=== PATIENT | male | born 1945 | race Caucasian/White ===

== ENCOUNTER 2024-03-26 09:56 | Outpatient (CLI) | payer MEDICARE, SELFPAY ==
--- OUTSIDE RECORDS SUMMARY | 2024-03-26 09:59 | XMS_ITS | Clinical Summary ---
Author Organization [facility] Address [address] [place] [address] Care Team Providers Care Digital Color Press Operator Name Role Phone Arturo Diaz MD Primary Care Provider Source Comments You are receiving this document as you are listed as the primary care provider,follow-up provider, or the patient has been referred to you for consultation.This is in compliance with the Medicare and[facility] E[facility] Incentive Program,which states Providers who transition their patient to another setting of careor provider of care or refers their patient to another provider of care shouldprovide summary care record for each transition of care or referral. [facility] Allergies No known active allergies Medications Medication Sig Dispensed Refills Start Date End Date Status lancets (SOFTCLIX)Indication s:Type II or unspecified type diabetes mellitus without mention of complication, uncontrolled Use 1 each as instructed. use to test blood sugar 102 each prn 05/02/2012 Active blood glucose test stripIndications:Typ e II or unspecified type diabetes mellitus without mention of complication, uncontrolled Use 1 Strip to test daily. 50 Strip 10/03/2018 Active aspirin 325 MG tablet Take 1 Tablet (325 mg) by mouth daily. Active cetirizine (ZYRTEC) 10 MG tablet Take 1 Tablet (10 mg) by mouth daily. Active Misc Natural Products (OSTEO BI-FLEX JOINT SHIELD OR) Active TURMERIC OR Active Probiotic Product (SUPER PROBIOTIC OR) Acti ve blood glucose monitoring deviceIndications:Co ntrolled type 2 diabetes mellitus without complication, without long-term current use of insulin (HRC) daily. Use as directed. Pharmacy dispense brand based on insurance. 1 Each 06/12/2023 Active blood glucose test stripIndications:Con trolled type 2 diabetes mellitus without complication, without long-term current use of insulin (HRC) Use to test daily. 100 Strip 11 06/12/2023 Active amLODIPine (NORVASC) 10 MG tablet Take 1 Tablet (10 mg) by mouth daily. 90 Tablet 3 08/04/2023 Active glipiZIDE XL (GLUCOTROL XL) 2.5 MG 24 hour release tabletIndications:Co ntrolled type 2 diabetes mellitus without complication, without long-term current use of insulin (HRC) Take 1 Tablet (2.5 mg) by mouth daily. 90 Tablet 3 08/04/2023 08/03/2024 Active sildenafil (REVATIO) 20 MG tablet Take 1-5 Tablets (20-100 mg) by mouth every 24 hours as needed. 90 Tablet 3 12/04/2023 Active triamcinolone acetonide (KENALOG) 0.1 % ointmentIndications: Eczema craquele To eczema rash on body up to twice daily when flared. Ok to try every other day for minimal rash. If no rash, do not need. 80 g 5 12/04/2023 Active metFORMIN (GLUCOPHAGE) 500 MG tabletIndications:Un controlled type 2 diabetes mellitus with hypoglycemia, unspecified hypoglycemia coma status (HRC) TAKE TWO TABLETS BY MOUTH TWICE A DAY WITH MEALS 360 Tablet 3 01/05/2024 Active Active Problems Problem Noted Date Diagnosed Date Hyperlipidemia 01/25/2013 Overview: Other and unspecified hyperlipidemia HTN (hypertension) 09/09/2011 Type 2 diabetes mellitus, controlled Resolved Problems Problem Noted Date Diagnosed Date Resolved Date Type 2 diabetes mellitus, uncontrolled 09/09/2011 08/19/2020 Overview: Type II or unspecified type diabetes mellitus without mention of complication, uncontrolled (HRC) Encounters Date Type Department Care Team Description 01/04/2024 Refill [facility] [address] [place], [place] [id number] Arturo Diaz MD Refill (metFORMIN (GLUCOPHAGE) 500 MG tablet [Pharmacy Med Name: METFORMIN HCL 500MG TABS]) from Last 3 Months Immunizations Name Administration Dates Next Due Flu Vac (3+ yrs) 08/09/2012 Influenza (Fluad) 06/17/2019 Influenza IIV3 (Trivalent) F miguel Rossidose, 65+ Yrs (26648) 07/02/2018,07/12/2017,07/14/2016, 015,06/27/2014 Influenza IIV4 (Quadrivalent ) Fluad, 65+ Yrs 09/26/2023,07/18/2022,07/27/2021, 020 Moderna Bivalent 12+ 10/19/2022 Moderna Monovalent 12+ 04/12/2022,12/23/2020, Moderna Monovalent Booster 12+ 10/04/2021 PCV13 (Prevnar) 07/10/2015 PPSV23 (Pneumovax) 08/06/2014 TDAP (BOOSTRIX) 08/06/2014 Family History Medical History Relation Name Comments Diabetes Father Cataract Mother Diabetes Brother 1 Diabetes Brother 2 Heart Disease Sister Amblyopia/Strabismus Negative Family History Glaucoma Negative Family History Macular Degeneration Negative Family History Retinal Detachment Negative Family History Relation Name Status Comments Father Mother Brother 1 Brother 2 Sister Social History Tobacco Use Types Packs/Day Years Used Date Smoking Tobacco: Former Cigarettes 0.3 3 Smokeless Tobacco: Never Tobacco Cessation:Counseling Given: Not Answered Alcohol Use Standard Drinks/Week Comments Yes 0 (1 standard drink = 0.6 oz pur e alcohol) rarely PHQ-2 Answer Date Recorded PHQ-2 Score 0 12/07/2023 Sex and Gender Information Value Date Recorded Sex Assigned at Not on file Gender Identity Not on file Sexual Orientation Not on file Last Filed Vital Signs Vital Sign Reading Time Taken Comments Blood Pressure 149/77 12/07/2023 11:23 AM GREEN BUILDING ENGINEER Pulse 88 12/07/2023 11:12 AM GREEN BUILDING ENGINEER Temperature 37 ??C (98.6 ??F) 09/07/2020 9:58 AM GREEN BUILDING ENGINEER Respiratory Rate 20 09/07/2020 9:58 AM GREEN BUILDING ENGINEER Oxygen Saturation 97% 09/07/2020 9:58 AM GREEN BUILDING ENGINEER Inhaled Oxygen Concentration - - Weight 84.8 kg (187 lb) 12/07/2023 11:12 AM GREEN BUILDING ENGINEER Height 162.6 cm (5' 4) 12/07/2023 11:12 AM GREEN BUILDING ENGINEER Body Mass Index 32.1 12/07/2023 11:12 AM GREEN BUILDING ENGINEER Plan of Treatment Health Maintenance Due Date Last Done Comments Diabetes: Foot Exam 1946 Zoster/Shingles (1 of 2) 01/16/1996 Diabetes: Eye Exam 11/02/2022 11/02/2021, 07/06/2017 COVID-19 Vaccine ( season) 2023 10/19/2022, 04/12/2022, 10/04/2021, Additional history exists Diabetes: HGBA1C 03/08/2024 12/07/2023, 08/2023, 12/21/2022, Additional history exists Diabetes: Urine Microalbumin 06/09/2024 06/09/2023, 12/22/2021, 09/16/2020, Additional history exists DTaP/Tdap/Td (2 - Tdap) 08/06/2024 08/06/2014 Diabetes: Creatinine 12/06/2024 12/07/2023, 06/12/2023, 12/21/2022, Additional history exists Medicare Annual Wellness Visit 12/06/2024 12/07/2023, 12/21/2022, 12/22/2021, Additional history exists Diabetes: Lipid Panel 12/22/2027 12/21/2022 , 05/10/2021, 12/27/2018, Additional history exists Pneumococcal 65+ Yrs Completed 07/10/2015, 08/06/20 14 Hep C Screening (Preventive Services) Completed 01/30/2018 FIT Colon Cancer Screening Discontinued 09/23/2019, Influenza Completed 09/26/2023, 07/02, 07/27/2021, Additional history exists HepA Aged Out No longer eligi ble based on patient's age to complete this topic HepB Aged Out No longer eligi ble based on patient's age to complete this topic Hib Aged Out No longer eligi ble based on patient's age to complete this topic IPV (Polio) Aged Out No longer eligi ble based on patient's age to complete this topic MCV4 Aged Out No longer eligi ble based on patient's age to complete this topic Procedures Procedure Name Priority Date/Time Associated Diagnosis Comments BASIC METABOLIC PANEL Routine 12/07/2023 11:53 AM GREEN BUILDING ENGINEER Controlled type 2 diabetes mellitus without complication, without long-term current use of insulin (HRC) Secondary hypertension (HRC) HGB A1C Routine 12/07/2023 11:53 AM GREEN BUILDING ENGINEER Controlled type 2 diabetes mellitus without complication, without long-term current use of insulin (HRC) ALBUMIN/CREAT RATIO Routine 06/09/2023 10:25 AM CDT Uncontrolled type 2 diabetes mellitus with hypoglycemia, unspecified hypoglycemia coma status (HRC) LIPID PANEL & DIRECT LDL (IF NEEDED) Routine 12/21/2022 9:28 AM CDT Controlled type 2 diabetes mellitus without complication, without long-term current use of insulin (HRC) FIT COLON RECTAL CANCER SCREENING Routine 09/23/2019 9:40 AM GREEN BUILDING ENGINEER Encounter for Medicare annual wellness exam HEPATITIS C ANTIBODY, WITH REFLEX Routine 01/30/2018 9:11 AM CDT Encounter for Medicare annual wellness exam from Last 3 Months or Most Recently Relevant to Health Maintenance Results * (ABNORMAL) Basic Metabolic Panel (12/07/2023 11:53 AM GREEN BUILDING ENGINEER) Sodium 140 136 - 145 mmol/L 12/07/2023 3:59 PM [facility] Potassium 4.2 3.5 - 5.1 mmol/L 12/07/2023 3:59 PM [facility] Chloride 108 98 - 109 mmol/L 12/07/2023 3:59 PM [facility] CO2 21 20 - 29 mmol/L 12/07/2023 3:59 PM [facility] Anion Gap 11 7 - 16 mmol/L 12/07/2023 3:59 PM [facility] Calcium 9.3 8.4 - 10.4 mg/dL 12/07/2023 3:59 PM [facility] BUN 21 7 - 26 mg/dL 12/07/2023 3:59 PM [facility] Creatinine 1.30(H) 0.73 - 1.18 mg/dL 12/07/2023 3:59 PM [facility] Glucose 156(H) 70 - 100 mg/dL 12/07/2023 3:59 PM [facility] Comment:The given reference range is for the fasting state. Non-fasting reference range for glucose is 70 - 180 mg/dL. GFR, Estimated 57(L) >60 mL/min/1.7 3m2 12/07/2023 3:59 PM [facility] Comment:>60 Hours Fasting 0.1 8 - 12 Hours 12/07/2023 3:59 PM [facility] Comment:Lab unable to obtain patient's fasting status at time of specimen collection. Blood Venipuncture / Unknown 12/07/2023 11:53 AM GREEN BUILDING ENGINEER 12/07/2023 11:53 AM GREEN BUILDING ENGINEER Arturo Diaz MD LAB_1 [facility] [address] [place] [address] * (ABNORMAL) Hgb A1C (12/07/2023 11:53 AM GREEN BUILDING ENGINEER) Hemoglobin A1C (Rapid) 7.9(H) <=5.6 % 12/07/2023 12:46 PM [facility] Estimated Average Glucose (Calc) 180 < 117 mg/dL 12/07/2023 12:46 PM [facility] Comment:Estimated average gl ucose (eAG) converts A1c into glucose units (mg/dL) and estimates average glucose over the past approximately 3 months. The eAG reference interval (<117 mg/dL) corresponds to an A1c of <5.7%. Blood Venipuncture / Unknown 12/07/2023 11:53 AM GREEN BUILDING ENGINEER 12/07/2023 11:53 AM GREEN BUILDING ENGINEER Narrative [facility] - 12/07/2023 12:46 PM GREEN BUILDING ENGINEER For patients not previously diagnosed with diabetes: 5.7-6.4%: Increased risk for diabetes 6.5% and greater: Diagnostic for diabetes For patients diagnosed with diabetes: <8.0%: Goal of therapy for ages 18-75 Clinicians may recommend a higher or lower goal for specific individuals. The test method used for this Hemoglobin A1c result can experience interference from elevated hemoglobin and other hemoglobin variants. In patients with results that do not correlate clinically, contact the lab for further direction. Arturo Diaz MD LAB_1 Performing Organization Address [facility] Co de Phone Number [facility] [id number] [place] [phone] * (ABNORMAL) Albumin/Creatinine Ratio,Random Urine (06/09/2023 10:25 AM CDT) Albumin/Creati nine Ratio, Urine, Random 30(H) <30 mg/g 06/09/2023 3:08 PM [facility] Albumin, Urine, Random 64.4 mg/L 06/09/2023 3:[address] [facility] Creatinine, Urine, Random 216 >20 mg/dL mg/dL 06/09/2023 3:[address] [facility] Urine Non-blood Collection / Unknown 06/09/2023 10:25 AM CDT 06/09/2023 10:25 AM CDT Arturo Diaz MD LAB_1 Performing Organization Address [facility] Co de Phone Number [facility] [address] [place] [address], [facility] [phone] * (ABNORMAL) Lipid Panel and Direct LDL(If Needed) (12/21/2022 9:28 AM CDT) Cholesterol 162 0 - 199 mg/dL 12/21/2022 10:[address] [facility] Triglyceride 131 <=149 mg/dL 12/21/2022 10:[address] [facility] HDL Cholesterol 30(L) >=40 mg/dL 10:[address] [facility] LDL, Calculated 106 <130 mg/dL 10:[address] [facility] Non HDL Chol, Calculated 132 <=159 mg/dL 12/21/2022 10:[address] [facility] Cholesterol/HDL Ratio 5.4 12/21/2022 10:[address] [facility] Hours Fasting 12 12/21/2022 10:[address] [facility] Blood Venipuncture / Unknown 12/21/2022 9:28 AM CDT 12/21/2022 9:28 AM CDT Arturo Diaz MD LAB_1 [facility] [address] [place] [address], [facility] [phone] * FIT Colon Rectal Cancer Screening (09/23/2019 9:40 AM GREEN BUILDING ENGINEER) FIT Specimen 1 Negative Negative 09/24/2019 1:56 PM GREEN BUILDING ENGINEER [facility] Stool 09/23/2019 9:40 AM GREEN BUILDING ENGINEER 09/23/2019 9:40 AM GREEN BUILDING ENGINEER Arturo Diaz MD LAB_1 Performing Organization Address [facility] Co de Phone Number [facility] [address] [address], [facility] [phone] * Hepatitis C Antibody, with Reflex (01/30/2018 9:11 AM CDT) Hepatitis C Antibody Nonreactive Nonreactive PN SOFT 01/30/2018 9:11 AM CDT 01/30/2018 12:21 PM CDT Narrative PN SOFT - 01/30/2018 4:28 PM CDT Performed at [address] [address] CLIA number [id number] Arturo Diaz MD LAB_1 PN SOFT [address] [place] [address] from Last 3 Months or Most Recently Relevant to Health Maintenance Care Teams Digital Color Press Operator Relationship Specialty [place] [address] [address] [place] [address] PCP - General 04/13/12
--- OUTSIDE RECORDS SUMMARY | 2024-03-26 09:59 | XMS_ITS | Encounter Summary ---
Author Organization [facility] Address [address] [place] [address] Care Team Providers Care Dog Barber Name Role Phone Kate Friend MD Primary Care Provider [phone] Reason for Visit * Reason Comments Refill metFORMIN (GLUCOPHAG E) 500 MG tablet [Pharmacy Med Name: METFORMIN HCL 500MG TABS] Encounter Details Date Type Department Care Team (Late st Contact Info) Description 01/04/2024 Refill [facility] [address] [place], [place] [phone] Kate Friend MD [address] [place] [phone] Refill (metFORMIN (GLUCOPHAGE) 500 MG tablet [Pharmacy Med Name: METFORMIN HCL 500MG TABS]) Social History Tobacco Use Types Packs/Day Years Used Date Smoking Tobacco: Former Cigarettes 0.3 3 Smokeless Tobacco: Never Alcohol Use Standard Drinks/Week Comments Yes 0 (1 standard drink = 0.6 oz pur e alcohol) rarely PHQ-2 Answer Date Recorded PHQ-2 Score 0 12/07/2023 Sex and Gender Information Value Date Recorded Sex Assigned at Not on file Gender Identity Not on file Sexual Orientation Not on file documented as of this encounter Nursing Notes * Priyanka Hampton RN - 01/05/2024 12:14 PM CDT Renewed medication per refill standing order. Requested Prescriptions Pending Prescriptions Disp Refills metFORMIN (GLUCOPHAGE) 500 MG tablet [Pharmacy Med Name: METFORMIN HCL 500MG TABS] 360 Tablet 3 Sig: TAKE TWO TABLETS BY MOUTH TWICE A DAY WITH MEALS * Gianni Reed Xrwcomm - 01/04/2024 2:59 PM CDT metFORMIN (GLUCOPHAGE) 500 MG tablet [Pharmacy Med Name: METFORMIN HCL 500MG TABS] Medication started: 01/24/2018 Last ordered by KATE FRIEND: 08/02/2023 (155 days ago) QTY: 360, Refills: 1, Sig: take 2 tablets (1,000 mg) by mouth two times a day with meals. (changed but equivalent) -> Cr is abnormal (1.3 mg/dL lies outside 0.73 mg/dL - 1.18 mg/dL) -> Refill x 12 months, qty: 360, refills: 3 (until due for an office visit, Cr check and HBA1C check) Last qualifying visit: 12/07/2023 (with KATE FRIEND) Next scheduled visit: None Cr: 1.3 mg/dL on 12/07/2023 HBA1C: 7.9 % on 12/07/2023 [facility] Embedded Refills, Reference: [id number], 01/04/2024 2:59:58 PM CDTMoe: MEGAN Refill Centralized Services - Primary Care [[id number]] ([id number]) documented in this encounter Plan of Treatment Not on file documented as of this encounter Visit Diagnoses Diagnosis Uncontrolled type 2 diabetes mellitus with hypoglycemia, unspecified hypoglycemia coma status (HRC) documented in this encounter Care Teams Dog Barber Relationship Specialty [place] [address] [place] [address] PCP - General 04/13/12 documented as of this encounter
== END 2024-03-26 09:57 | disposition home or self-care (01) ==
LOC: NFLDREF 09:57
PROVIDERS: PCP Family Medicine; Visit Provider Family Medicine
DX: Z00.00 Encounter for general adult medical examination without abnormal findings (principal); I10 Essential (primary) hypertension; Z86.79 Personal history of other diseases of the circulatory system
CPT/HCPCS: 80048

== ENCOUNTER 2024-04-18 14:01 | Outpatient (CLI) | payer MEDICARE, SELFPAY ==
--- OUTSIDE RECORDS SUMMARY | 2024-04-18 14:04 | XMS_ITS | Encounter Summary ---
Author Organization [facility] Address [address] [place] [address] Care Team Providers Care Donor Floor Technician Name Role Phone Arturo Diaz MD Primary Care Provider [phone] Reason for Visit * Reason Comments DM/VASC/HTN Registry Call 1 Encounter Details Date Type Department Care Team (Late st Contact Info) Description 04/02/2024 Telephone [facility] [address] [place], [place] [phone] [place] [address] [place] [phone] DM/VASC/HTN Registry Call 1 Social History Tobacco Use Types Packs/Day Years [...] as of this encounter Nursing Notes * Chanel Esparza LPN - 04/02/2024 3:45 PM CDT Contacted patient for blood pressure follow up. Patient needs to schedule follow up BP visit with PCP. Outcome of call: Patient confirmed no longer receiving care in our system [Staff instructions Email [email or web address] to remove patient from outreach registry] documented in this encounter Plan of Treatment Not on file documented as of this encounter Visit Diagnoses Not on filedocumented in this encounter Care Teams Donor Floor Technician Relationship Specialty [place] [address] [place] [address] PCP - General 04/13/12 documented as of this encounter
--- OUTSIDE RECORDS SUMMARY | 2024-04-18 14:04 | XMS_ITS | Clinical Summary ---
Author Organization [facility] Address [address] [place] [address] Care Team Providers Care Overhead Worker Name Role Phone Arturo Diaz MD Primary Care Provider [phone] Source Comments You are receiving this document as you are listed as the primary care provider,follow-up provider, or the patient has been referred to you for consultation.This is in compliance with the Medicare and[facility] E[facility] Incent[facility],which states Providers who transition their patient to another setting of careor provider of care or refers their patient to another provider of care shouldprovide summary care record for each transition of care or referral. [facility] Allergies No known active allergies Medications Medication [...] Encounters Date Type Department Care Team Description 04/02/2024 Telephone [facility] [address] [place] [address] Arturo Diaz MD DM/VASC/HTN Registry Call 1 from Last 3 Months Immunizations Name Administration Dates Next Due Flu Vac (3+ yrs) 08/09/2012 Influenza (Fluad) 06/17/2019 Influenza IIV3 (Trivalent) F luzone Highdose, 65+ Yrs (59124) 07/02/2018,07/12/2017,07/14/2016, 015,06/27/2014 Influenza IIV4 (Quadrivalent ) Mateusz, 65+ Yrs 09/26/2023,07/18/2022,07/27/2021, 020 Moderna Bivalent 12+ [...] Comments Blood Pressure 149/77 12/07/2023 11:23 AM PAINTER ROUGH Pulse 88 12/07/2023 11:12 AM PAINTER ROUGH Temperature 37 ??C (98.6 ??F) 09/07/2020 9:58 AM PAINTER ROUGH Respiratory Rate 20 09/07/2020 9:58 AM PAINTER ROUGH Oxygen Saturation 97% 09/07/2020 9:58 AM PAINTER ROUGH Inhaled Oxygen Concentration - - Weight 84.8 kg (187 lb) 12/07/2023 11:12 AM PAINTER ROUGH Height 162.6 cm (5' 4) 12/07/2023 11:12 AM PAINTER ROUGH Body Mass Index 32.1 12/07/2023 11:12 AM PAINTER ROUGH Plan of Treatment Health Maintenance Due Date Last Done Comments Diabetes: Foot Exam 1945 Zoster/Shingles (1 of 2) 01/16/1996 Diabetes: Eye Exam 11/02/2022 11/02/2021, 07/06/2017 COVID-19 Vaccine ( season) 2023 10/19/2022, 04/12/2022, 10/04/2021, Additional history exists Diabetes: HGBA1C 03/08/2024 12/07/2023, 08/2023, 12/21/2022, Additional history exists Influenza (#1) 2024 09/26/2023, 07/02, 07/27/2021, Additional history exists Diabetes: Urine Microalbumin 06/09/2024 [...] 01/30/2018 FIT Colon Cancer Screening Discontinued 09/23/2019, HepA Aged Out No longer eligi ble [...] BASIC METABOLIC PANEL Routine 12/07/2023 11:53 AM PAINTER ROUGH Controlled type 2 diabetes mellitus without complication, without long-term current use of insulin (HRC) Secondary hypertension (HRC) HGB A1C Routine 12/07/2023 11:53 AM PAINTER ROUGH Controlled type 2 diabetes mellitus without complication, [...] RECTAL CANCER SCREENING Routine 09/23/2019 9:40 AM PAINTER ROUGH Encounter for Medicare annual wellness exam HEPATITIS C ANTIBODY, WITH REFLEX Routine 01/30/2018 9:11 AM CDT Encounter for Medicare annual wellness exam from Last 3 Months or Most Recently Relevant to Health Maintenance Results * (ABNORMAL) Basic Metabolic Panel (12/07/2023 11:53 AM PAINTER ROUGH) Sodium 140 136 - 145 mmol/L 12/07/2023 3:59 PM [facility] Potassium 4.2 3.5 - 5.1 mmol/L 12/07/2023 3:59 PM [facility] Chloride 108 98 - 109 mmol/L 12/07/2023 3:59 PM [facility] CO2 21 20 - 29 mmol/L 12/07/2023 3:59 PM [facility] Anion Gap 11 7 - 16 mmol/L 12/07/2023 3:59 PM [facility] Calcium 9.3 8.4 - 10.4 mg/dL 12/07/2023 3:59 PM [facility] BUN 21 7 - 26 mg/dL 12/07/2023 3:59 PM [facility] Creatinine 1.30(H) 0.73 - 1.18 mg/dL 12/07/2023 3:59 PM [facility] Glucose 156(H) 70 - 100 mg/dL 12/07/2023 3:59 PM [facility] Comment:The given reference range is for the fasting state. Non-fasting reference range for glucose is 70 - 180 mg/dL. GFR, Estimated 57(L) >60 mL/min/1.7 3m2 12/07/2023 3:59 PM [facility] Comment:>60 Hours Fasting 0.1 8 - 12 Hours 12/07/2023 3:59 PM [facility] Comment:Lab unable to obtain patient's fasting status at time of specimen collection. Blood Venipuncture / Unknown 12/07/2023 11:53 AM PAINTER ROUGH 12/07/2023 11:53 AM PAINTER ROUGH Arturo Diaz MD LAB_1 [facility] [address] [place] [address] * (ABNORMAL) Hgb A1C (12/07/2023 11:53 AM PAINTER ROUGH) Hemoglobin A1C (Rapid) 7.9(H) <=5.6 % 12/07/2023 12:46 PM [facility] Estimated Average Glucose (Calc) 180 < 117 mg/dL 12/07/2023 12:46 PM [facility] Comment:Estimated average gl ucose (eAG) converts A1c into glucose units (mg/dL) and estimates average glucose over the past approximately 3 months. The eAG reference interval (<117 mg/dL) corresponds to an A1c of <5.7%. Blood Venipuncture / Unknown 12/07/2023 11:53 AM PAINTER ROUGH 12/07/2023 11:53 AM PAINTER ROUGH Narrative [facility] - 12/07/2023 12:46 PM PAINTER ROUGH For patients not previously diagnosed with diabetes: [...] Arturo Diaz MD LAB_1 Performing Organization Address [facility] Co de Phone Number [facility] [address] [place] [address] * (ABNORMAL) Albumin/Creatinine Ratio,Random Urine (06/09/2023 10:25 AM CDT) Pathologist [facility] Albumin/Creati nine Ratio, Urine, Random 30(H) <30 mg/g 06/09/2023 3:08 PM T [facility] Albumin, Urine, Random 64.4 mg/L 06/09/2023 3:08 PM [facility] Creatinine, Urine, Random 216 >20 mg/dL mg/dL 06/09/2023 3:08 PM [facility] Urine Non-blood Collection / Unknown 06/09/2023 10:25 AM CDT 06/09/2023 10:25 AM CDT Arturo Diaz MD LAB_1 Performing Organization Address [facility] Co de Phone Number [facility] [address] [place] [address] [phone] * (ABNORMAL) Lipid Panel and Direct LDL(If Needed) (12/21/2022 9:28 AM CDT) Pathologist [facility] Cholesterol 162 0 - 199 mg/dL 12/21/2022 10:27 AM [facility] Triglyceride 131 <=149 mg/dL 12/21/2022 10:27 AM [facility] HDL Cholesterol 30(L) >=40 mg/dL 10:27 AM [facility] LDL, Calculated 106 <130 mg/dL 10:27 AM [facility] Non HDL Chol, Calculated 132 <=159 mg/dL 12/21/2022 10:27 AM [facility] Cholesterol/HDL Ratio 5.4 12/21/2022 10:27 AM [facility] Hours Fasting 12 12/21/2022 10:27 AM [facility] Blood Venipuncture / Unknown 12/21/2022 9:28 AM CDT 12/21/2022 9:28 AM CDT Arturo Diaz MD LAB_1 [facility] [address] [place] [address], [facility] [phone] * FIT Colon Rectal Cancer Screening (09/23/2019 9:40 AM PAINTER ROUGH) FIT Specimen 1 Negative Negative 09/24/2019 1:56 PM [facility] Stool 09/23/2019 9:40 AM PAINTER ROUGH 09/23/2019 9:40 AM PAINTER ROUGH Arturo Diaz MD LAB_1 [facility] [address] [address], [facility] [phone] * Hepatitis C Antibody, with Reflex (01/30/2018 9:11 AM CDT) Hepatitis C Antibody Nonreactive Nonreactive PN SOFT 01/30/2018 9:11 AM CDT 01/30/2018 12:21 PM CDT Narrative PN SOFT - 01/30/2018 4:28 PM CDT Performed at [facility], [address] [place] [id number] CLIA number [id number] Arturo Diaz MD LAB_1 PN [facility] [address] [place] [address] from Last 3 Months or Most Recently Relevant to Health Maintenance Care Teams Overhead Worker Relationship Specialty [place] [address] [place] [address] PCP - General 04/13/12
== END 2024-04-18 14:02 | disposition home or self-care (01) ==
LOC: NFLDREF 14:02
PROVIDERS: PCP Family Medicine; Visit Provider Internal Medicine Cardiovascular Disease
DX: I48.0 Paroxysmal atrial fibrillation (principal); Z13.29 Encounter for screening for other suspected endocrine disorder
CPT/HCPCS: 84443

== ENCOUNTER 2024-05-22 08:27 | Outpatient (CLI) | payer MEDICARE, SELFPAY ==
--- OUTSIDE RECORDS SUMMARY | 2024-05-22 08:30 | XMS_ITS | Referral Summary ---
Author Organization [facility] Address [facility] [place] [address] Care Team Providers Care Bedspread Folder Name Role Phone Clinic, [facility] Pr ovider Allergies No known active allergies Medications Medication Sig Dispensed Refills Start Date End Date Status ASPIRIN EC PO Take 81 mg by mouth daily Active lisinopril-hydrochlor othiazide (PRINZIDE,ZESTORETIC) 20-12.5 MG per tablet Take 2 tablets by mouth daily Active METFORMIN HCL PO Take 1,000 mg by mouth 2 times daily (with meals) Active Tadalafil (CIALIS PO) Act abisai clopidogrel (PLAVIX) 75 MG tablet Take 1 tablet (75 mg) by mouth daily 30 tablet 10/30/2020 Active Social History Tobacco Use Types Packs/Day Years Used Date Smoking Tobacco: Never Smokeless Tobacco: Never Adolescent Education Answer Date Record ed Getting School Help Needed Not on file 12/03 Sex and Gender Information Value Date Recorded Sex Assigned at Not on file Gender Identity Not on file Sexual Orientation Not on file Last Filed Vital Signs Vital Sign Reading Time Taken Comments Blood Pressure 183/105 12/04/2023 12:32 PM INSIDE SALES ASSISTANT Pulse 106 12/04/2023 12:32 PM INSIDE SALES ASSISTANT Temperature 36.8 ??C (98.3 ??F) 12/04/2023 12:[address] Respiratory Rate 16 12/04/2023 12:32 PM INSIDE SALES ASSISTANT Oxygen Saturation 95% 12/04/2023 12:32 PM INSIDE SALES ASSISTANT Inhaled Oxygen Concentration - - Weight 84.8 kg (187 lb) 12/04/2023 12:32 PM INSIDE SALES ASSISTANT Height 165.1 cm (5' 5) 12/04/2023 12:32 PM INSIDE SALES ASSISTANT Body Mass Index 31.12 12/04/2023 12:32 PM INSIDE SALES ASSISTANT Plan of Treatment Not on file Procedures Procedure Name Priority Date/Time Associated Diagnosis Comments BASIC METABOLIC PANEL STAT 12/04/2023 12:40 PM INSIDE SALES ASSISTANT from Last 3 Months or Most Recently Relevant to Health Maintenance Results * (ABNORMAL) Basic metabolic panel (BMP) (12/04/2023 12:40 PM INSIDE SALES ASSISTANT) Sodium 137 135 - 145 mmol/L 12/04/2023 1:15 PM [facility]IDE SALES ASSIST[facility] Comment:Reference intervals for this test were updated on 06/27/2023 to more accurately reflect our healthy population. There may be differences in the flagging of prior results with similar values performed with this method. Interpretation of those prior results can be made in the context of the updated reference intervals. Potassium 4.4 3.4 - 5.3 mmol/L 12/04/2023 1:15 PM [facility] Chloride 101 98 - 107 mmol/L 12/04/2023 1:15 PM [facility] Carbon Dioxide (CO2) 20(L) 22 - 29 mmol/L 12/04/2023 1:15 PM INSIDE SALES ASSIST[facility] Anion Gap 16(H) 7 - 15 mmol/L 12/04/2023 1:15 PM [facility]IDE SALES ASSIST[facility] Urea Nitrogen 23.1(H) 8.0 - 23.0 mg/dL 12/04/2023 1:15 PM INSIDE SALES ASSISTANT [facility] Creatinine 1.45(H) 0.67 - 1.17 mg/dL 12/04/2023 1:15 PM INSIDE SALES ASSISTANT [facility] GFR Estimate 50(L) >60 mL/min/1. 73m2 12/04/2023 1:15 PM INSIDE SALES ASSISTANT [facility] Calcium 9.1 8.8 - 10.2 mg/dL 12/04/2023 1:15 PM [facility]IST[facility] Glucose 209(H) 70 - 99 mg/dL 12/04/2023 1:15 PM [facility]IDE SALES ASSIST[facility] Blood STRUCTURE OF RIGHT UPPER LIMB / Unknown Venipuncture / Unknown 12/04/2023 12:40 PM INSIDE SALES ASSISTANT 12/04/2023 12:51 PM INSIDE SALES ASSISTANT Anatoliy Waller MD LAB - BLOOD ORDER [facility] [address] (1st floor, no room number) [place] [address], [facility] [phone] from Last 3 Months or Most Recently Relevant to Health Maintenance Care Teams Bedspread Folder Relationship Specialty Start Date End Date Clinic, [facility] [address] [place] [address] PCP - General 02/28/23
--- OUTSIDE RECORDS SUMMARY | 2024-05-22 08:30 | XMS_ITS | Clinical Summary ---
Author Organization [facility] Address [address] [place] [address]. [place] [address] Care Team Providers Care Convenience Store Manager Name Role Phone Clinic, [facility] Primary [...] Comments Blood Pressure 183/105 12/04/2023 12:32 PM [facility] Pulse 106 12/04/2023 12:32 PM [facility] CO[facility] Temperature 36.8 ??C (98.3 ??F) 12/04/2023 12:[address] Respiratory Rate 16 12/04/2023 12:32 PM [facility] Oxygen Saturation 95% 12/04/2023 12:32 PM [facility] CO[facility] Inhaled Oxygen Concentration - - Weight 84.8 kg (187 lb) 12/04/2023 12:32 PM [facility] CO[facility] Height 165.1 cm (5' 5) 12/04/2023 12:32 PM [facility] [facility] Body Mass Index 31.12 12/04/2023 12:32 PM O[employer]ITE HEALTH COACH Plan of Treatment Health Maintenance Due Date Last Done Comments ADVANCE CARE PLANNING 1945 ANNUAL REVIEW OF HM ORDERS 1945 HEPATITIS C SCREENING 01/16/1964 LIPID 1986 ZOSTER IMMUNIZATION (1 of 2) 01/16/1996 RSV VACCINE ( & 60+) (1 - 1-dose 60+ series) 2006 FALL RISK ASSESSMENT 2011 MEDICARE ANNUAL WELLNESS VISIT 11/04/2021 11/04/2020, 05/08/2020, 05/03/2019, Additional history exists COVID-19 Vaccine ( season) 2023 10/19/2022, 04/12/2022, 10/04/2021, Additional history exists PHQ-2 (once per calendar year) 2023 INFLUENZA VACCINE (#1) 2024 , 07/18/2022, 07/27/2021, Additional history exists DTAP/TDAP/TD IMMUNIZATION (2 - Td or Tdap) 08/06/2024 08/06/2014 GLUCOSE 12/03/2026 12/04/2023, 10/03, 10/30/2020, Additional history exists Pneumococcal Vaccine: 65+ Years Completed 07/10/2015, 08/06/2014 COLORECTAL CANCER SCREENING Discontinued FIT Discontinued 09/23/[address] COLONOGRAPHY Discontinued FLEX SIG Discontinued HPV IMMUNIZATION Aged Out No longer e ligible based on patient's age to complete this topic IPV IMMUNIZATION Aged Out No longer e ligible based on patient's age to complete this topic MENINGITIS IMMUNIZATION Aged Out No l onger eligible based on patient's age to complete this topic RSV MONOCLONAL ANTIBODY Aged Out No l onger eligible based on patient's age to complete this topic sDNA (Cologuard) Discontinued Procedures Procedure Name Priority Date/Time Associated Diagnosis Comments BASIC METABOLIC PANEL STAT 12/04/2023 12:40 PM [facility] HE[employer] CO[facility] from Last 3 Months or Most Recently Relevant to Health Maintenance Results * (ABNORMAL) Basic metabolic panel (BMP) (12/04/2023 12:40 PM [facility] [facility]) Sodium 137 135 - 145 mmol/L 12/04/2023 1:15 PM [facility] Comment:Reference intervals for this test were updated on 06/27/2023 to more accurately reflect our healthy population. There may be differences in the flagging of prior results with similar values performed with this method. Interpretation of those prior results can be made in the context of the updated reference intervals. Potassium 4.4 3.4 - 5.3 mmol/L 12/04/2023 1:15 PM [facility] Chloride 101 98 - 107 mmol/L 12/04/2023 1:15 PM [facility] Carbon Dioxide (CO2) 20(L) 22 - 29 mmol/L 12/04/2023 1:15 PM [facility] Anion Gap 16(H) 7 - 15 mmol/L 12/04/2023 1:15 PM [facility] Urea Nitrogen 23.1(H) 8.0 - 23.0 mg/dL 12/04/2023 1:15 PM [facility] Creatinine 1.45(H) 0.67 - 1.17 mg/dL 12/04/2023 1:15 PM [facility] GFR Estimate 50(L) >60 mL/min/1. 73m2 12/04/2023 1:15 PM [facility] Calcium 9.1 8.8 - 10.2 mg/dL 12/04/2023 1:15 PM [facility] Glucose 209(H) 70 - 99 mg/dL 12/04/2023 1:15 PM [facility] Blood STRUCTURE OF RIGHT UPPER LIMB / Unknown Venipuncture / Unknown 12/04/2023 12:40 PM [facility] 12/04/2023 12:51 PM [facility] Anatoliy Waller MD LAB - BLOOD ORDER [facility] [address] [facility] (1st floor, no room number) [place] [address], [facility] [phone] from Last 3 Months or Most Recently Relevant to Health Maintenance Care Teams Convenience Store Manager Relationship Specialty Start Date End Date Clinic, [facility] [place] [address] [place], [place] [address] PCP - General 02/28/23
--- OUTSIDE RECORDS SUMMARY | 2024-05-22 08:30 | XMS_ITS | Encounter Summary ---
Author Organization [facility] Address [address] [place] [address] Care Team Providers Care Manager Finance Name Role Phone Arturo Diaz MD Primary Care Provider [phone] Reason for Visit * Reason Comments DM/VASC/HTN Registry Call 1 Encounter Details Date Type Department Care Team (Late st Contact Info) Description 04/02/2024 Telephone [facility] [address] [place], [place] [id number] [place] [address] [place] [id number] DM/VASC/HTN Registry Call 1 Social History Tobacco [...] care in our system [Staff instructions Email [email or web address] to remove patient from outreach registry] documented in this encounter Plan of Treatment Not on file documented as of this encounter Visit Diagnoses Not on filedocumented in this encounter Care Teams Manager Finance Relationship Specialty [place] [address] [address] [place] [address] PCP - General 04/13/12 documented as of this encounter
--- OUTSIDE RECORDS SUMMARY | 2024-05-22 08:30 | XMS_ITS | Clinical Summary ---
Author Organization [facility] Address [address] [place] [address] Care Team Providers Care Automatic Furnace Operator Name Role Phone Arturo Diaz MD Primary Care Provider Source Comments You are receiving this document as you are listed as the primary care provider,follow-up provider, or the patient has been referred to you for consultation.This is in compliance with the Medicare and[facility] EHR Incentive Program,which states Providers who transition their patient to another setting of careor provider of care or refers their patient to another provider of care shouldprovide summary care record for each transition of care or referral. [facility] Allergies No known active allergies Medications [...] Problem Noted Date Diagnosed Date Hyperlipidemia 01/25/2013 Overview (05/24/2017): Other and unspecified hyperlipidemia HTN (hypertension) 09/09/2011 Type 2 diabetes mellitus, controlled Resolved Problems Problem Noted Date Diagnosed Date Resolved Date Type 2 diabetes mellitus, uncontrolled 09/09/2011 08/19/2020 Overview (05/24/2017): Type II or unspecified type diabetes mellitus without mention of complication, uncontrolled (HRC) Encounters Date Type Department Care Team Description 04/02/2024 Telephone [facility] [address] [place] [address] Arturo Diaz MD DM/VASC/HTN Registry Call 1 from Last 3 Months Immunizations Name Administration Dates Next Due Flu Vac (3+ yrs) 08/09/2012 Influenza (Fluad) 06/17/2019 Influenza IIV3 (Trivalent) Yecenia Rossidose, 65+ Yrs (26736) 07/02/2018,07/12/2017,07/14/2016, 015,06/27/2014 Influenza IIV4 (Quadrivalent ) Fluad, [...] Comments Blood Pressure 149/77 12/07/2023 11:23 AM FIELD SERVICES ANALYST Pulse 88 12/07/2023 11:12 AM FIELD SERVICES ANALYST Temperature 37 ??C (98.6 ??F) 09/07/2020 9:58 AM FIELD SERVICES ANALYST Respiratory Rate 20 09/07/2020 9:58 AM FIELD SERVICES ANALYST Oxygen Saturation 97% 09/07/2020 9:58 AM FIELD SERVICES ANALYST Inhaled Oxygen Concentration - - Weight 84.8 kg (187 lb) 12/07/2023 11:12 AM FIELD SERVICES ANALYST Height 162.6 cm (5' 4) 12/07/2023 11:12 AM FIELD SERVICES ANALYST Body Mass Index 32.1 12/07/2023 11:12 AM FIELD SERVICES ANALYST Plan of Treatment Health Maintenance Due Date Last Done Comments Diabetes: Foot Exam 1945 MTM Covered 1945 Zoster/Shingles (1 of 2) 01/16/1996 Diabetes: [...] BASIC METABOLIC PANEL Routine 12/07/2023 11:53 AM FIELD SERVICES ANALYST Controlled type 2 diabetes mellitus without complication, without long-term current use of insulin (HRC) Secondary hypertension (HRC) HGB A1C Routine 12/07/2023 11:53 AM FIELD SERVICES ANALYST Controlled type 2 diabetes mellitus without complication, without long-term current use of insulin (HRC) ALBUMIN/CREAT RATIO Routine 06/09/2023 10:25 AM CDT Uncontrolled type 2 diabetes mellitus with hypoglycemia, unspecified hypoglycemia coma status (HRC) LIPID PANEL & DIRECT LDL (IF NEEDED) Routine 12/21/2022 9:28 AM CDT Controlled type 2 diabetes mellitus without complication, without long-term current use of insulin (HRC) FIT,OCCULT BLOOD, STOOL Routine 09/23/2019 9:40 AM FIELD SERVICES ANALYST Encounter for Medicare annual wellness exam HEPATITIS C ANTIBODY, WITH REFLEX Routine 01/30/2018 9:11 AM CDT Encounter for Medicare annual wellness exam from Last 3 Months or Most Recently Relevant to Health Maintenance Results * (ABNORMAL) Basic Metabolic Panel (12/07/2023 11:53 AM FIELD SERVICES ANALYST) Sodium 140 136 - 145 mmol/L 12/07/2023 3:59 PM [facility] Potassium 4.2 3.5 - 5.1 mmol/L 12/07/2023 3:59 PM [facility] Chloride 108 98 - 109 mmol/L 12/07/2023 3:59 PM [facility] CO2 21 20 - 29 mmol/L 12/07/2023 3:59 PM [facility] Anion Gap 11 7 - 16 mmol/L 12/07/2023 3:59 PM [facility] Calcium 9.3 8.4 - 10.4 mg/dL 12/07/2023 3:59 PM [facility] BUN 21 7 - 26 mg/dL 12/07/2023 3:59 PM [facility] Creatinine 1.30(H) 0.73 - 1.18 mg/dL 12/07/2023 3:59 PM [facility] Glucose 156(H) 70 - 100 mg/dL 12/07/2023 3:59 PM [facility] Comment:The given reference range is for the fasting state. Non-fasting reference range for glucose is 70 - 180 mg/dL. GFR, Estimated 57(L) >60 mL/min/1.7 3m2 12/07/2023 3:59 PM [facility] Comment:>60 Hours Fasting 0.1 8 - 12 Hours 12/07/2023 3:59 PM [facility] Comment:Lab unable to obtain patient's fasting status at time of specimen collection. Blood Venipuncture / Unknown 12/07/2023 11:53 AM FIELD SERVICES ANALYST 12/07/2023 11:53 AM FIELD SERVICES ANALYST Arturo Diaz MD LAB_1 [facility] [address] [place] [address] * (ABNORMAL) Hgb A1C (12/07/2023 11:53 AM FIELD SERVICES ANALYST) Hemoglobin A1C (Rapid) 7.9(H) <=5.6 % 12/07/2023 12:46 PM [facility] Estimated Average Glucose (Calc) 180 < 117 mg/dL 12/07/2023 12:46 PM [facility] Comment:Estimated average gl ucose (eAG) converts A1c into glucose units (mg/dL) and estimates average glucose over the past approximately 3 months. The eAG reference interval (<117 mg/dL) corresponds to an A1c of <5.7%. Blood Venipuncture / Unknown 12/07/2023 11:53 AM FIELD SERVICES ANALYST 12/07/2023 11:53 AM FIELD SERVICES ANALYST Narrative [facility] - 12/07/2023 12:46 PM FIELD SERVICES ANALYST For patients not previously diagnosed with diabetes: [...] Arturo Diaz MD LAB_1 Performing Organization Address [facility] Co de Phone Number [facility] [address] [place] [address] * (ABNORMAL) Albumin/Creatinine Ratio,Random Urine (06/09/2023 10:25 AM CDT) Pathologist [facility] Albumin/Creati nine Ratio, Urine, Random 30(H) <30 mg/g 06/09/2023 3:08 PM [facility] Albumin, Urine, Random 64.4 mg/L 06/09/2023 3:08 PM [facility] Creatinine, Urine, Random 216 >20 mg/dL mg/dL 06/09/2023 3:08 PM [facility] Urine Non-blood Collection / Unknown 06/09/2023 10:25 AM CDT 06/09/2023 10:25 AM CDT Arturo Diaz MD LAB_1 Performing Organization Address [facility] Co de Phone Number [facility] [address] [place] [address], [facility] [phone] * (ABNORMAL) Lipid Panel and Direct LDL(If Needed) (12/21/2022 9:28 AM CDT) Pathologist [facility] Cholesterol 162 0 - 199 mg/dL 12/21/2022 10:27 AM [facility] Triglyceride 131 <=149 mg/dL 12/21/2022 10:27 AM [facility] HDL Cholesterol 30(L) >=40 mg/dL 10:27 AM [facility] LDL, Calculated 106 <130 mg/dL 10:27 AM [facility] Non HDL Chol, Calculated 132 <=159 mg/dL 12/21/2022 10:27 AM [facility] Cholesterol/HDL Ratio 5.4 12/21/2022 10:27 AM [facility] Hours Fasting 12 12/21/2022 10:27 AM [facility] Blood Venipuncture / Unknown 12/21/2022 9:28 AM CDT 12/21/2022 9:28 AM CDT Arturo Diaz MD LAB_1 [facility] [address] [place] [address], [facility] [phone] * FIT Colon Rectal Cancer Screening (09/23/2019 9:40 AM FIELD SERVICES ANALYST) FIT Specimen 1 Negative Negative 09/24/2019 1:56 PM FIELD SERVICES ANALYST [facility] Stool 09/23/2019 9:40 AM FIELD SERVICES ANALYST 09/23/2019 9:40 AM FIELD SERVICES ANALYST Arturo Diaz MD LAB_1 Performing Organization Address [facility] Co de Phone Number [facility] [address] [address], [facility] [phone] * Hepatitis C Antibody, with Reflex (01/30/2018 9:11 AM CDT) Hepatitis C Antibody Nonreactive Nonreactive PN SOFT 01/30/2018 9:11 AM CDT 01/30/2018 12:21 PM CDT Narrative PN SOFT - 01/30/2018 4:28 PM CDT Performed at [address] [address] CLIA number [id number] Arturo Diaz MD LAB_1 Performing Organization Address City/[facility]/ZIP Co de Phone Number PN SOFT [address] [place] [address] from Last 3 Months or Most Recently Relevant to Health Maintenance Care Teams Automatic Furnace Operator Relationship Specialty [place] [address] [address] [place] [address] PCP - General 04/13/12
== END 2024-05-22 08:28 | disposition home or self-care (01) ==
LOC: RAD 08:28
PROVIDERS: PCP Family Medicine; Visit Provider Internal Medicine Cardiovascular Disease
DX: I10 Essential (primary) hypertension (principal); I51.7 Cardiomegaly; I48.91 Unspecified atrial fibrillation; Z86.79 Personal history of other diseases of the circulatory system
CPT/HCPCS: 93306

== ENCOUNTER 2024-06-17 08:30 | Outpatient (CLI) | payer MEDICARE, SELFPAY ==
--- OUTSIDE RECORDS SUMMARY | 2024-06-19 17:14 | XMS_ITS | Referral Summary ---
Author Organization [facility] Address [facility] [place] [address] Care Team Providers Care Train Station Server Name Role Phone Clinic, Tori Love Primary [...] Comments Blood Pressure 183/105 12/04/2023 12:32 PM APPLICATION SECURITY SPECIALIST Pulse 106 12/04/2023 12:32 PM APPLICATION SECURITY SPECIALIST Temperature 36.8 ??C (98.3 ??F) 12/04/2023 12:[address] Respiratory Rate 16 12/04/2023 12:32 PM APPLICATION SECURITY SPECIALIST Oxygen Saturation 95% 12/04/2023 12:32 PM APPLICATION SECURITY SPECIALIST Inhaled Oxygen Concentration - - Weight 84.8 kg (187 lb) 12/04/2023 12:32 PM APPLICATION SECURITY SPECIALIST Height 165.1 cm (5' 5) 12/04/2023 12:32 PM APPLICATION SECURITY SPECIALIST Body Mass Index 31.12 12/04/2023 12:32 PM APPLICATION SECURITY SPECIALIST Plan of Treatment Not on file Procedures Procedure Name Priority Date/Time Associated Diagnosis Comments BASIC METABOLIC PANEL STAT 12/04/2023 12:40 PM APPLICATION SECURITY SPECIALIST from Last 3 Months or Most Recently Relevant to Health Maintenance Results * (ABNORMAL) Basic metabolic panel (BMP) (12/04/2023 12:40 PM APPLICATION SECURITY SPECIALIST) Sodium 137 135 - 145 mmol/L 12/04/2023 1:15 PM APPLICATION SECURITY SPECIALIST [facility] Comment:Reference intervals for this test were updated on 06/27/2023 to more accurately reflect our healthy population. There may be differences in the flagging of prior results with similar values performed with this method. Interpretation of those prior results can be made in the context of the updated reference intervals. Potassium 4.4 3.4 - 5.3 mmol/L 12/04/2023 1:15 PM APPLICATION SECURITY SPECIALIST [facility] Chloride 101 98 - 107 mmol/L 12/04/2023 1:15 PM APPLICATION SECURITY SPECIALIST [facility] Carbon Dioxide (CO2) 20(L) 22 - 29 mmol/L 12/04/2023 1:15 PM APPLICATION SECURITY SPECIALIST [facility] Anion Gap 16(H) 7 - 15 mmol/L 12/04/2023 1:15 PM APPLICATION SECURITY SPECIALIST [facility] Urea Nitrogen 23.1(H) 8.0 - 23.0 mg/dL 12/04/2023 1:15 PM APPLICATION SECURITY SPECIALIST [facility] Creatinine 1.45(H) 0.67 - 1.17 mg/dL 12/04/2023 1:15 PM APPLICATION SECURITY SPECIALIST [facility] GFR Estimate 50(L) >60 mL/min/1. 73m2 12/04/2023 1:15 PM APPLICATION SECURITY SPECIALIST [facility] Calcium 9.1 8.8 - 10.2 mg/dL 12/04/2023 1:15 PM APPLICATION SECURITY SPECIALIST [facility] Glucose 209(H) 70 - 99 mg/dL 12/04/2023 1:15 PM APPLICATION SECURITY SPECIALIST [facility] Blood STRUCTURE OF RIGHT UPPER LIMB / Unknown Venipuncture / Unknown 12/04/2023 12:40 PM APPLICATION SECURITY SPECIALIST 12/04/2023 12:51 PM APPLICATION SECURITY SPECIALIST Anatoliy Waller MD LAB - BLOOD ORDER [facility] [address] Lab (1st floor, no room number) [place] [address], [facility] [phone] from Last 3 Months or Most Recently Relevant to Health Maintenance Care Teams Train Station Server Relationship Specialty Start Date End Date Clinic, Tori [facility]aston [place] [address] [place] [address] PCP - General 02/28/23
--- OUTSIDE RECORDS SUMMARY | 2024-06-19 17:14 | XMS_ITS | Clinical Summary ---
Author Organization [facility] Address [address] [place] [address]. [place] [address] Care Team Providers Care Patient Assessment Coordinator Name Role Phone Clinic, Tori Love Primary [...] Comments Blood Pressure 183/105 12/04/2023 12:32 PM RESTAURANT WORKER Pulse 106 12/04/2023 12:32 PM RESTAURANT WORKER Temperature 36.8 ??C (98.3 ??F) 12/04/2023 12:[address] Respiratory Rate 16 12/04/2023 12:32 PM RESTAURANT WORKER Oxygen Saturation 95% 12/04/2023 12:32 PM RESTAURANT WORKER Inhaled Oxygen Concentration - - Weight 84.8 kg (187 lb) 12/04/2023 12:32 PM RESTAURANT WORKER Height 165.1 cm (5' 5) 12/04/2023 12:32 PM RESTAURANT WORKER Body Mass Index 31.12 12/04/2023 12:32 PM RESTAURANT WORKER Plan of Treatment Health Maintenance Due Date Last Done Comments ADVANCE CARE PLANNING 1945 ANNUAL REVIEW OF HM ORDERS 1945 HEPATITIS C SCREENING 01/16/1964 LIPID 1986 ZOSTER IMMUNIZATION (1 of 2) 01/16/1996 FALL RISK ASSESSMENT 2011 RSV VACCINE (1 - 1-dose 75+ series) 2021 MEDICARE ANNUAL WELLNESS VISIT 11/04/2021 11/04/2020, 05/08/2020, 05/03/2019, Additional history exists PHQ-2 (once per calendar year) 2023 COVID-19 Vaccine ( season) 2024 10/19/2022, 04/12/2022, 10/04/2021, Additional history exists INFLUENZA VACCINE (#1) 2024 , 07/18/2022, 07/27/2021, [...] BASIC METABOLIC PANEL STAT 12/04/2023 12:40 PM RESTAURANT WORKER from Last 3 Months or Most Recently Relevant to Health Maintenance Results * (ABNORMAL) Basic metabolic panel (BMP) (12/04/2023 12:40 PM RESTAURANT WORKER) Sodium 137 135 - 145 mmol/L 12/04/2023 1:15 PM RESTAURANT WORKER [facility] Comment:Reference intervals for this test were updated on 06/27/2023 to more accurately reflect our healthy population. There may be differences in the flagging of prior results with similar values performed with this method. Interpretation of those prior results can be made in the context of the updated reference intervals. Potassium 4.4 3.4 - 5.3 mmol/L 12/04/2023 1:15 PM RESTAURANT WORKER [facility] Chloride 101 98 - 107 mmol/L 12/04/2023 1:15 PM RESTAURANT WORKER [facility] Carbon Dioxide (CO2) 20(L) 22 - 29 mmol/L 12/04/2023 1:15 PM RESTAURANT WORKER [facility] Anion Gap 16(H) 7 - 15 mmol/L 12/04/2023 1:15 PM RESTAURANT WORKER [facility] Urea Nitrogen 23.1(H) 8.0 - 23.0 mg/dL 12/04/2023 1:15 PM RESTAURANT WORKER [facility] Creatinine 1.45(H) 0.67 - 1.17 mg/dL 12/04/2023 1:15 PM RESTAURANT WORKER [facility] GFR Estimate 50(L) >60 mL/min/1. 73m2 12/04/2023 1:15 PM RESTAURANT WORKER [facility] Calcium 9.1 8.8 - 10.2 mg/dL 12/04/2023 1:15 PM RESTAURANT WORKER [facility] Glucose 209(H) 70 - 99 mg/dL 12/04/2023 1:15 PM RESTAURANT WORKER [facility] Blood STRUCTURE OF RIGHT UPPER LIMB / Unknown Venipuncture / Unknown 12/04/2023 12:40 PM RESTAURANT WORKER 12/04/2023 12:51 PM RESTAURANT WORKER Anatoliy Waller MD LAB - BLOOD ORDER [facility] [address] Lab (1st floor, no room number) [place] [address], [facility] [phone] from Last 3 Months or Most Recently Relevant to Health Maintenance Care Teams Patient Assessment Coordinator Relationship Specialty Start Date End Date Clinic, Tori Gaston [place] [address] [place], [place] [address] PCP - General 02/28/23
--- OUTSIDE RECORDS SUMMARY | 2024-06-19 17:14 | XMS_ITS | Encounter Summary ---
[facility] Address [address] [place] [address] Care Team Providers Care Civil Engineering Technician Name Role Phone Kate Friend MD Primary Care Provider [phone] Reason for Visit * Reason Comments Refill sildenafil (REVATIO) 20 MG tablet [Pharmacy Med Name: SILDENAFIL CITRATE 20MG TABS] Encounter Details Date Type Department Care Team (Late st Contact Info) Description 05/29/2024 Refill [facility] [address] [place], [place] [phone] [place] Friend MD [id number] [place] [phone] Refill (sildenafil (REVATIO) 20 MG tablet [Pharmacy Med Name: SILDENAFIL CITRATE 20MG TABS]) Social History Tobacco Use Types Packs/Day [...] as of this encounter Nursing Notes * Lory Solorio RN - 06/04/2024 6:29 AM CDT Renewed medication per medication refill standing order. Requested Prescriptions Signed Prescriptions Disp Refills sildenafil (REVATIO) 20 MG tablet 90 Tablet 2 Sig: TAKE 1-5 TABLETS BY MOUTH EVERY 24 HOURS NEEDED Authorizing Provider: KATE FRIEND Ordering User: LORY SOLORIO * Javed Reednaldo Xrwcomm - 05/29/2024 10:07 AM CDT sildenafil (REVATIO) 20 MG tablet [Pharmacy Med Name: SILDENAFIL CITRATE 20MG TABS] Medication started: 12/22/2021 Last ordered by KATE FRIEND (177 days ago) QTY: 90, Refills: 3, Sig: take 1-5 tablets (20-100 mg) by mouth every 24 hours as needed. (changed but equivalent) -> NO Nitrate use -> Refill x 9 months (until due for an office visit) -> Calculate the quantity and number of refills manually. Last qualifying visit: 12/07/2023 (with KATE FRIEND) Next scheduled visit: [facility] Embedded Refills, Reference: [id number], 05/29/2024 10:07:08 AM CDT, Pool: MEGAN Refill Centralized Services - Primary Care [[id number]] ([id number]) documented in this encounter Plan of Treatment Not on file documented as of this encounter Visit Diagnoses Not on filedocumented in this encounter Care Teams Civil Engineering Technician Relationship Specialty [place] [address] [address] [place] [address] PCP - General 04/13/12 documented as of this encounter
--- OUTSIDE RECORDS SUMMARY | 2024-06-19 17:14 | XMS_ITS | Encounter Summary ---
Author Organization [facility] Address [address] [place] [address] Care Team Providers Care Golf Player Assistant Name Role Phone Arturo Diaz MD Primary Care Provider [phone] Reason for Visit * Reason Comments DM/VASC/HTN Registry Call 1 Encounter Details Date Type Department Care Team (Late st Contact Info) Description 04/02/2024 Telephone [facility] [address] [place], [place] [phone] [place] [address] [place] [phone] DM/VASC/HTN Registry Call 1 Social History Tobacco [...] care in our system [Staff instructions Email [email or web address] patient from outreach registry] documented in this encounter Plan of Treatment Not on file documented as of this encounter Visit Diagnoses Not on filedocumented in this encounter Care Teams Golf Player Assistant Relationship Specialty [place] [address] [place] [address] PCP - General 04/13/12 documented as of this encounter
--- OUTSIDE RECORDS SUMMARY | 2024-06-19 17:14 | XMS_ITS | Clinical Summary ---
Author Organization [facility] Address [address] [place] [address] Care Team Providers Care Contract Manager Name Role Phone Arturo Diaz MD Primary Care Provider Source Comments You are receiving this document as you are listed as the primary care provider,follow-up provider, or the patient has been referred to you for consultation.This is in compliance with the Medicare and[facility] EHR Incentive Program,which states Providers who transition their patient to another setting of careor provider of care or refers their patient to another provider of care shouldprovide summary care record for each transition of care or referral. [facility] Allergies No known active allergies Medications Medication Sig Dispensed Refills Start Date End Date Status lancets (SOFTCLIX)Indicati ons:Type II or unspecified type diabetes mellitus without mention of complication, uncontrolled Use 1 each as instructed. use to test blood sugar 102 each prn 05/02/2012 Active blood glucose test stripIndications:T ype II or unspecified type diabetes mellitus without [...] OR Active Probiotic Product (SUPER PROBIOTIC OR) Active blood glucose monitoring deviceIndications: Controlled type 2 diabetes mellitus without complication, without long-term current use of insulin (HRC) daily. Use as directed. Pharmacy dispense brand based on insurance. 1 Each 06/12/2023 Active blood glucose test stripIndications:C ontrolled type 2 diabetes mellitus without complication, without long-term current use of insulin (HRC) Use to test daily. 100 Strip 11 06/12/2023 Active glipiZIDE XL (GLUCOTROL XL) 2.5 MG 24 hour release tabletIndications: Controlled type 2 diabetes mellitus without complication, without long-term current use of insulin (HRC) Take 1 Tablet (2.5 mg) by mouth daily. 90 Tablet 3 08/04/2023 4 Active triamcinolone acetonide (KENALOG) 0.1 % ointmentIndication s:Eczema craquele To eczema rash on body up to twice daily when flared. Ok to try every other day for minimal rash. If no rash, do not need. 80 g 5 12/04/2023 Active metFORMIN (GLUCOPHAGE) 500 MG tabletIndications: Uncontrolled type 2 diabetes mellitus with hypoglycemia, unspecified hypoglycemia coma status (HRC) TAKE TWO TABLETS BY MOUTH TWICE A DAY WITH MEALS 360 Tablet 3 01/05/2024 Active sildenafil (REVATIO) 20 MG tablet TAKE 1-5 TABLETS BY MOUTH EVERY 24 HOURS NEEDED 90 Tablet 2 06/04/2024 Active amLODIPine (NORVASC) 10 MG tablet take one tablet by mouth every day 90 Tablet 1 06/10/2024 Active amLODIPine (NORVASC) 10 MG tablet Take 1 Tablet (10 mg) by mouth daily. 90 Tablet 3 08/04/2023 4 Discontinued sildenafil (REVATIO) 20 MG tablet Take 1-5 Tablets (20-100 mg) by mouth every 24 hours as needed. 90 Tablet 3 12/04/2023 4 Discontinued Active Problems Problem Noted Date Diagnosed Date Hyperlipidemia 01/25/2013 Overview (05/24/2017): Other and unspecified hyperlipidemia HTN (hypertension) 09/09/2011 Type 2 diabetes mellitus, controlled Resolved Problems Problem Noted Date Diagnosed Date Resolved Date Type 2 diabetes mellitus, uncontrolled 09/09/2011 08/19/2020 Overview (05/24/2017): Type II or unspecified type diabetes mellitus without mention of complication, uncontrolled (HRC) Encounters Date Type Department Care Team Description 06/10/2024 [facility] [address] [place] [address] Arturo Diaz MD Refill (amLODIPine (NORVASC) 10 MG tablet [Pharmacy Med Name: AMLODIPINE BESYLATE 10MG TAB]) 05/29/2024 Refill [facility] [address] [place] [address] Arturo Diaz MD Refill (sildenafil (REVATIO) 20 MG tablet [Pharmacy Med Name: SILDENAFIL CITRATE 20MG TABS]) 04/02/2024 Telephone [facility] [address] [place] [address] Arturo Diaz MD DM/VASC/HTN Registry Call 1 from Last 3 Months Immunizations Name Administration Dates Next Due Flu Vac (3+ yrs) 08/09/2012 Influenza IIV3 (Trivalent) F lusafia Highdose, 65+ Yrs (84698) 07/02/2018,07/12/2017,07/14/2016, 015,06/27/2014 Influenza IIV4 (Quadrivalent ) Fluad, 65+ Yrs 09/26/2023,07/18/2022,07/27/2021, 020 Influenza aIIV3 65+ Years (Fluad) 06/17/2019 Moderna Bivalent 12+ 10/19/2022 Moderna Monovalent 12+ [...] Comments Blood Pressure 149/77 12/07/2023 11:23 AM SAFETY LEAD Pulse 88 12/07/2023 11:12 AM SAFETY LEAD Temperature 37 ??C (98.6 ??F) 09/07/2020 9:58 AM SAFETY LEAD Respiratory Rate 20 09/07/2020 9:58 AM SAFETY LEAD Oxygen Saturation 97% 09/07/2020 9:58 AM SAFETY LEAD Inhaled Oxygen Concentration - - Weight 84.8 kg (187 lb) 12/07/2023 11:12 AM SAFETY LEAD Height 162.6 cm (5' 4) 12/07/2023 11:12 AM SAFETY LEAD Body Mass Index 32.1 12/07/2023 11:12 AM SAFETY LEAD Plan of Treatment Health Maintenance Due Date Last Done Comments Diabetes: Foot Exam 1945 MTM Covered 1945 Zoster/Shingles (1 of 2) 01/16/1996 RSV (1 - 1-dose 75+ series) 2021 Diabetes: Eye Exam 11/02/2022 11/02/2021, 07/06/2017 Diabetes: HGBA1C 03/08/2024 12/07/2023, 08/2023, 12/21/2022, Additional history exists COVID-19 Vaccine ( season) 2024 10/19/2022, 04/12/2022, 10/04/2021, Additional history exists Influenza (#1) 2024 09/26/2023, [...] BASIC METABOLIC PANEL Routine 12/07/2023 11:53 AM SAFETY LEAD Controlled type 2 diabetes mellitus without complication, without long-term current use of insulin (HRC) Secondary hypertension (HRC) HGB A1C Routine 12/07/2023 11:53 AM SAFETY LEAD Controlled type 2 diabetes mellitus without complication, [...] FIT,OCCULT BLOOD, STOOL Routine 09/23/2019 9:40 AM SAFETY LEAD Encounter for Medicare annual wellness exam HEPATITIS C ANTIBODY, WITH REFLEX Routine 01/30/2018 9:11 AM CDT Encounter for Medicare annual wellness exam from Last 3 Months or Most Recently Relevant to Health Maintenance Results * (ABNORMAL) Basic Metabolic Panel (12/07/2023 11:53 AM [facility]) Pathologist [facility] Sodium 140 136 - 145 mmol/L 12/07/2023 3:59 PM [facility] Potassium 4.2 3.5 - 5.1 mmol/L 12/07/2023 3:59 PM [facility] Chloride 108 98 - 109 mmol/L 12/07/2023 3:59 PM [facility] CO2 21 20 - 29 mmol/L 12/07/2023 3:59 PM [facility] Anion Gap 11 7 - 16 mmol/L 12/07/2023 3:59 PM [facility] Calcium 9.3 8.4 - 10.4 mg/dL 12/07/2023 3:59 PM [facility] BUN 21 7 - 26 mg/dL 12/07/2023 3:59 PM [facility] Creatinine 1.30(H) 0.73 - 1.18 mg/dL 12/07/2023 3:59 PM [facility] Glucose 156(H) 70 - 100 mg/dL 12/07/2023 3:59 PM [facility] Comment:The given reference range is for the fasting state. Non-fasting reference range for glucose is 70 - 180 mg/dL. GFR, Estimated 57(L) >60 mL/min/1.7 3m2 12/07/2023 3:59 PM [facility] Comment:>60 Hours Fasting 0.1 8 - 12 Hours 12/07/2023 3:59 PM [facility] Comment:Lab unable to obtain patient's fasting status at time of specimen collection. Blood Venipuncture / Unknown 12/07/2023 11:53 AM SAFETY LEAD 12/07/2023 11:53 AM [facility] Arturo Daiz MD LAB_[address] [facility] [address] [place] [address] * (ABNORMAL) Hgb A1C (12/07/2023 11:53 AM [facility]) Pathologist [facility] Hemoglobin A1C (Rapid) 7.9(H) <=5.6 % 12/07/2023 12:46 PM SAFETY LEAD [facility] Estimated Average Glucose (Calc) 180 < 117 mg/dL 12/07/2023 12:46 PM [facility] Comment:Estimated average gl ucose (eAG) converts A1c into glucose units (mg/dL) and estimates average glucose over the past approximately 3 months. The eAG reference interval (<117 mg/dL) corresponds to an A1c of <5.7%. Blood Venipuncture / Unknown 12/07/2023 11:53 AM SAFETY LEAD 12/07/2023 11:53 AM SAFETY LEAD Narrative [facility] - 12/07/2023 12:46 PM SAFETY LEAD For patients not previously diagnosed with diabetes: [...] Arturo Diaz MD LAB_1 Performing Organization Address [facility] Co de Phone Number [facility] [address] [place] [address] * (ABNORMAL) Albumin/Creatinine Ratio,Random Urine (06/09/2023 10:25 AM CDT) Albumin/Creati nine Ratio, Urine, Random 30(H) <30 mg/g 06/09/2023 3:08 PM CDT [facility] Albumin, Urine, Random 64.4 mg/L 06/09/2023 3:08 PM CDT [facility] Creatinine, Urine, Random 216 >20 mg/dL mg/dL 06/09/2023 3:08 PM T [facility] Urine Non-blood Collection / Unknown 06/09/2023 10:25 AM CDT 06/09/2023 10:25 AM CDT Atruro Diaz MD LAB_1 Performing Organization Address [facility]/ZIP Co de Phone Number [facility] [address] [place] [address], [facility] [phone] * (ABNORMAL) Lipid Panel and Direct LDL(If Needed) (12/21/2022 9:28 AM CDT) [facility] Cholesterol 162 0 - 199 mg/dL 12/21/2022 10:27 AM T [facility] Triglyceride 131 <=149 mg/dL 12/21/2022 10:27 AM [facility] HDL Cholesterol 30(L) >=40 mg/dL 10:27 AM [facility] LDL, Calculated 106 <130 mg/dL 3 10:27 AM [facility] Non HDL Chol, Calculated 132 <=159 mg/dL 12/21/2022 10:27 AM [facility] Cholesterol/HDL Ratio 5.4 12/21/2022 10:27 AM [facility] Hours Fasting 12 12/21/2022 10:27 AM [facility] Blood Venipuncture / Unknown 12/21/2022 9:28 AM CDT 12/21/2022 9:28 AM CDT Arturo Diaz MD LAB_1 [facility] [address] [place] [address], [facility] [phone] * FIT Colon Rectal Cancer Screening (09/23/2019 9:40 AM SAFETY LEAD) [facility] FIT Specimen 1 Negative Negative 09/24/2019 1:56 PM SAFETY LEAD [facility] Stool 09/23/2019 9:40 AM SAFETY LEAD 09/23/2019 9:40 AM SAFETY LEAD Arturo Diaz MD LAB_1 Performing Organization Address City/[facility]/ZIP Co de Phone Number [facility] [address] [address], [facility] [phone] * Hepatitis C Antibody, with Reflex (01/30/2018 9:11 AM CDT) Hepatitis C Antibody Nonreactive Nonreactive PN BELTRAN 01/30/2018 9:11 AM CDT 01/30/2018 12:21 PM CDT Narrative [facility] - 01/30/2018 4:28 PM CDT Performed at [facility], [address] [place] [address] CLIA number [id number] Arturo Diaz MD LAB_1 [facility] [address] [place] [address] from Last 3 Months or Most Recently Relevant to Health Maintenance Care Teams Contract Manager Relationship Specialty [place] [address] [address] [address] PCP - General 04/13/12
--- OUTSIDE RECORDS SUMMARY | 2024-06-19 17:14 | XMS_ITS | Encounter Summary ---
Author Organization [facility] Address [address] [place] [address] Care Team Providers Care Medical Records Analyst Name Role Phone Kate Friend MD Primary Care Provider [phone] Reason for Visit * Reason Comments Refill amLODIPine (NORVASC) 10 MG tablet [Pharmacy Med Name: AMLODIPINE BESYLATE 10MG TAB] Encounter Details Date Type Department Care Team (Late st Contact Info) Description 06/10/2024 Refill [facility] [address] [place], [place] [phone] [place] [address] [place], [place] [phone] Refill (amLODIPine (NORVASC) 10 MG tablet [Pharmacy Med Name: AMLODIPINE BESYLATE 10MG TAB]) Social History Tobacco Use Types Packs/Day Years [...] as of this encounter Nursing Notes * Mary Hogue, RN - 06/10/2024 2:23 PM CDT Renewed medication per medication refill protocol. Requested Prescriptions Pending Prescriptions Disp Refills amLODIPine (NORVASC) 10 MG tablet [Pharmacy Med Name: AMLODIPINE BESYLATE 10MG TAB] 90 Tablet 1 Sig: take one tablet by mouth every day * Ginani Reedm - 06/10/2024 11:00 AM CDT amLODIPine (NORVASC) 10 MG tablet [Pharmacy Med Name: AMLODIPINE BESYLATE 10MG TAB] Medication started: 01/02/2019 Last ordered by KATE FRIEND (311 days ago) QTY: 90, Refills: 3, Sig: take 1 tablet (10 mg) by mouth daily. (changed but equivalent) -> Refill x 6 months, qty: 90, refills: 1 (until due for an office visit) Last qualifying visit: 12/07/2023 (with KATE FRIEND) Next scheduled visit: None [facility] Embedded Refills, Reference: [id number], 06/10/2024 11:00:57 AM CDT, Tank Burt Centralized Services - Primary Care [[id number]] ([id number]) documented in this encounter Plan of Treatment Not on file documented as of this encounter Visit Diagnoses Not on filedocumented in this encounter Care Teams Medical Records Analyst Relationship Specialty [place] [address] [address] [place] [address] PCP - General 04/13/12 documented as of this encounter
== END 2024-06-17 08:31 | disposition home or self-care (01) ==
LOC: NFLDREF 06-19 17:12
PROVIDERS: PCP Family Medicine; Referring Provider Family Medicine; Visit Provider Family Medicine
DX: E78.5 Hyperlipidemia, unspecified (principal); I10 Essential (primary) hypertension; E11.65 Type 2 diabetes mellitus with hyperglycemia; Z79.899 Other long term (current) drug therapy; Z13.21 Encounter for screening for nutritional disorder; Z13.29 Encounter for screening for other suspected endocrine disorder
CPT/HCPCS: 80053; 80061; 82043; 82570; 82607; 84443

== ENCOUNTER 2024-07-05 12:13 | Outpatient (CLI) | payer MEDICARE, SELFPAY ==
--- OUTSIDE RECORDS SUMMARY | 2024-07-05 12:15 | XMS_ITS | Clinical Summary ---
Author Organization [facility] Address [address] [place] [address]. [place] [address] Care Team Providers Care Coordinator Of Evaluation Name Role Phone Clinic, Tori Love Primary [...] Comments Blood Pressure 183/105 12/04/2023 12:32 PM VETERANS SERVICE OFFICER Pulse 106 12/04/2023 12:32 PM VETERANS SERVICE OFFICER Temperature 36.8 ??C (98.3 ??F) 12/04/2023 12:[address] Respiratory Rate 16 12/04/2023 12:32 PM VETERANS SERVICE OFFICER Oxygen Saturation 95% 12/04/2023 12:32 PM VETERANS SERVICE OFFICER Inhaled Oxygen Concentration - - Weight 84.8 kg (187 lb) 12/04/2023 12:32 PM VETERANS SERVICE OFFICER Height 165.1 cm (5' 5) 12/04/2023 12:32 PM VETERANS SERVICE OFFICER Body Mass Index 31.12 12/04/2023 12:32 PM VETERANS SERVICE OFFICER Plan of Treatment Health Maintenance Due Date [...] BASIC METABOLIC PANEL STAT 12/04/2023 12:40 PM VETERANS SERVICE OFFICER from Last 3 Months or Most Recently Relevant to Health Maintenance Results * (ABNORMAL) Basic metabolic panel (BMP) (12/04/2023 12:40 PM VETERANS SERVICE OFFICER) Sodium 137 135 - 145 mmol/L 12/04/2023 1:15 PM [facility] Comment:Reference intervals for this test were updated on 06/27/2023 to more accurately reflect our healthy population. There may be differences in the flagging of prior results with similar values performed with this method. Interpretation of those prior results can be made in the context of the updated reference intervals. Potassium 4.4 3.4 - 5.3 mmol/L 12/04/2023 1:15 PM [facility] Chloride 101 98 - 107 mmol/L 12/04/2023 1:15 PM [facility] Carbon Dioxide (CO2) 20(L) 22 - 29 mmol/L 12/04/2023 1:15 PM [facility] Anion Gap 16(H) 7 - 15 mmol/L 12/04/2023 1:15 PM [facility] Urea Nitrogen 23.1(H) 8.0 - 23.0 mg/dL 12/04/2023 1:15 PM [facility] Creatinine 1.45(H) 0.67 - 1.17 mg/dL 12/04/2023 1:15 PM [facility] GFR Estimate 50(L) >60 mL/min/1. 73m2 12/04/2023 1:15 PM [facility] Calcium 9.1 8.8 - 10.2 mg/dL 12/04/2023 1:15 PM [facility] Glucose 209(H) 70 - 99 mg/dL 12/04/2023 1:15 PM [facility] Blood STRUCTURE OF RIGHT UPPER LIMB / Unknown Venipuncture / Unknown 12/04/2023 12:40 PM VETERANS SERVICE OFFICER 12/04/2023 12:51 PM V[employer]ERANS SERVICE OFFICER Anatoliy Waller MD LAB - BLOOD ORDER [facility] [address] Lab (1st floor, no room number) [place] [address], [facility] [phone] from Last 3 Months or Most Recently Relevant to Health Maintenance Care Teams Coordinator Of Evaluation Relationship Specialty Start Date End Date Clinic, Tori [facility] [place] [address] [place], [place] [address] PCP - General 02/28/23
--- OUTSIDE RECORDS SUMMARY | 2024-07-05 12:16 | XMS_ITS | Encounter Summary ---
Author Organization [facility] Address [address] [place] [address] Care Team Providers Care Hospitalist Name Role Phone Arturo Diaz MD Primary Care Provider [phone] Reason for Visit * Reason Comments DM/VASC/HTN Registry Call 1 Encounter Details Date Type Department Care Team (Late st Contact Info) Description 04/02/2024 Telephone [facility] [address] [place], [place] [phone] [place] [address] [place] [phone] DM/VASC/HTN Registry Call 1 Social History Tobacco [...] care in our system [Staff instructions Email to remove patient from outreach registry] documented in this encounter Plan of Treatment Not on file documented as of this encounter Visit Diagnoses Not on filedocumented in this encounter Care Teams Hospitalist Relationship Specialty [place] [address] [place] [address] PCP - General 04/13/12 documented as of this encounter
--- OUTSIDE RECORDS SUMMARY | 2024-07-05 12:16 | XMS_ITS | Encounter Summary ---
Author Organization [facility] Address [address] [place] [address] Care Team Providers Care Technical Operations Vice President Name Role Phone Kate Friend MD Primary Care Provider [phone] Reason for Visit * Reason Comments Refill sildenafil (REVATIO) 20 MG tablet [Pharmacy Med Name: SILDENAFIL CITRATE 20MG TABS] Encounter Details Date Type Department Care Team (Late st Contact Info) Description 05/29/2024 Refill [facility] [address] [place], [place] [phone] [place] [id number] [place] [phone] Refill (sildenafil (REVATIO) 20 MG tablet [Pharmacy [...] KATE FRIEND) Next scheduled visit: None [facility] Embedded Refills, Reference: [id number], 05/29/2024 10:07:08 AM CDT, Pool: MEGAN Refill Centralized Services - Primary Care [[id number]] ([id number]) documented in this encounter Plan of Treatment Not on file documented as of this encounter Visit Diagnoses Not on filedocumented in this encounter Care Teams Technical Operations Vice President Relationship Specialty [place] [address] [address] [address] [address] PCP - General 04/13/12 documented as of this encounter
--- OUTSIDE RECORDS SUMMARY | 2024-07-05 12:16 | XMS_ITS | Referral Summary ---
Author Organization [place] Address [facility] [place] [address] Care Team Providers Care Healthcare Administration Internship Name Role Phone Clinic, Tori Love Primary [...] Comments Blood Pressure 183/105 12/04/2023 12:32 PM GRINDER AND HONER OPERATOR AUTOMATIC Pulse 106 12/04/2023 12:32 PM GRINDER AND HONER OPERATOR AUTOMATIC Temperature 36.8 ??C (98.3 ??F) 12/04/2023 12:[address] Respiratory Rate 16 12/04/2023 12:32 PM GRINDER AND HONER OPERATOR AUTOMATIC Oxygen Saturation 95% 12/04/2023 12:32 PM GRINDER AND HONER OPERATOR AUTOMATIC Inhaled Oxygen Concentration - - Weight 84.8 kg (187 lb) 12/04/2023 12:32 PM GRINDER AND HONER OPERATOR AUTOMATIC Height 165.1 cm (5' 5) 12/04/2023 12:32 PM GRINDER AND HONER OPERATOR AUTOMATIC Body Mass Index 31.12 12/04/2023 12:32 PM GRINDER AND HONER OPERATOR AUTOMATIC Plan of Treatment Not on file Procedures Procedure Name Priority Date/Time Associated Diagnosis Comments BASIC METABOLIC PANEL STAT 12/04/2023 12:40 PM GRINDER AND HONER OPERATOR AUTOMATIC from Last 3 Months or Most Recently Relevant to Health Maintenance Results * (ABNORMAL) Basic metabolic panel (BMP) (12/04/2023 12:40 PM GRINDER AND HONER OPERATOR AUTOMATIC) Sodium 137 135 - 145 mmol/L 12/04/2023 1:15 PM GRINDER AND HONER OPERATOR [facility] Comment:Reference intervals for this test were updated on 06/27/2023 to more accurately reflect our healthy population. There may be differences in the flagging of prior results with similar values performed with this method. Interpretation of those prior results can be made in the context of the updated reference intervals. Potassium 4.4 3.4 - 5.3 mmol/L 12/04/2023 1:15 PM GRINDER AND HONER OPERATOR [facility] Chloride 101 98 - 107 mmol/L 12/04/2023 1:15 PM GR[facility]ER AND HONER OPERATOR [facility] Carbon Dioxide (CO2) 20(L) 22 - 29 mmol/L 12/04/2023 1:15 PM GRINDER AND HONER OPERATOR AUTOMATIC [facility] Anion Gap 16(H) 7 - 15 mmol/L 12/04/2023 1:15 PM GRINDER AND HONER OPERATOR AUTOMATIC [facility] Urea Nitrogen 23.1(H) 8.0 - 23.0 mg/dL 12/04/2023 1:15 PM GRINDER AND HONER OPERATOR AUTOMATIC [facility] Creatinine 1.45(H) 0.67 - 1.17 mg/dL 12/04/2023 1:15 PM GRINDER AND HONER OPERATOR AUTOMATIC [facility] GFR Estimate 50(L) >60 mL/min/1. 73m2 12/04/2023 1:15 PM GRINDER AND HONER OPERATOR AUTOMATIC [facility] Calcium 9.1 8.8 - 10.2 mg/dL 12/04/2023 1:15 PM GR[facility] AND HONER OPERATOR [facility] Glucose 209(H) 70 - 99 mg/dL 12/04/2023 1:15 PM GR[facility]ER AND HONER OPERATOR [facility] Blood STRUCTURE OF RIGHT UPPER LIMB / Unknown Venipuncture / Unknown 12/04/2023 12:40 PM GRINDER AND HONER OPERATOR AUTOMATIC 12/04/2023 12:51 PM GRINDER AND HONER OPERATOR AUTOMATIC Anatoliy Waller MD LAB - BLOOD ORDER [facility] Lab [address] Lab (1st floor, no room number) [place] [address], [facility] [phone] from Last 3 Months or Most Recently Relevant to Health Maintenance Care Teams Healthcare Administration Internship Relationship Specialty Start Date End Date Clinic, Tori [place] [address] [place] [address] PCP - General 02/28/23
--- OUTSIDE RECORDS SUMMARY | 2024-07-05 12:16 | XMS_ITS | Encounter Summary ---
Author Organization [facility] Address [address], [place] [address] Care Team Providers Care Supervisor Boat Outfitting Name Role Phone Kate Friend MD Primary Care Provider [phone] Reason for Visit * Reason Comments Refill sildenafil (REVATIO) 20 MG tablet [Pharmacy Med Name: SILDENAFIL CITRATE 20MG TABS] Encounter Details Date Type Department Care Team (Late st Contact Info) Description 06/24/2024 Refill [facility] [address] [place], [place] [phone] [place] [id number] [place] [phone] Refill (sildenafil (REVATIO) 20 MG tablet [Pharmacy [...] as of this encounter Nursing Notes * Rashmi Astorga RN - 06/28/2024 8:26 AM CDT Requested Prescriptions Refused Prescriptions Disp Refills sildenafil (REVATIO) 20 MG tablet [Pharmacy Med Name: SILDENAFIL CITRATE 20MG TABS] 90 Tablet Sig: TAKE 1-5 TABLETS BY MOUTH EVERY 24 HOURS NEEDED Refused By: RASHMI ASTORGA Reason for Refusal: Patient Has Requested Refill Too Soon Rx 06/04/24 * Gianni Reedwcomm - 06/24/2024 12:41 PM CDT sildenafil (REVATIO) 20 MG tablet [Pharmacy Med Name: SILDENAFIL CITRATE 20MG TABS] Medication started: 12/22/2021 Last ordered by KATE FRIEND (20 days ago) QTY: 90, Refills: 2, Sig: take 1-5 tablets by mouth every 24 hours as needed (unchanged) -> NO Nitrate use -> Refill x 6 months (until due for an office visit) -> Calculate the quantity and number of refills manually. Last qualifying visit: 12/07/2023 (with KATE FRIEND) Next scheduled visit: None [facility] Embedded Refills, Reference: [id number], 06/24/2024 12:41:08 PM CDT, Pool: MEGAN Refill Centralized Services - Primary Care [[id number]] ([id number]) documented in this encounter Plan of Treatment Not on file documented as of this encounter Visit Diagnoses Not on filedocumented in this encounter Care Teams Supervisor Boat Outfitting Relationship Specialty [place] [address] [place] [address] PCP - General 04/13/12 documented as of this encounter
--- OUTSIDE RECORDS SUMMARY | 2024-07-05 12:16 | XMS_ITS | Clinical Summary ---
Author Organization [facility] Address [address] [place] [address] Care Team Providers Care Certified Drug Counselor Name Role Phone Arturo Diaz MD Primary Care Provider [phone] Source Comments You are receiving this document as you are listed as the primary care provider,follow-up provider, or the patient has been referred to you for consultation.This is in compliance with the Medicare and[facility] EHR Incentive Program,which states Providers who transition their patient to another setting of careor provider of care or refers their patient to another provider of care shouldprovide summary care record for each transition of care or referral. [facility] Allergies No known active allergies Medications Medication [...] daily. 90 Tablet 3 08/04/2023 4 Discontinued Active Problems Problem Noted Date Diagnosed Date Hyperlipidemia 01/25/2013 Overview (05/24/2017): Other and unspecified hyperlipidemia HTN (hypertension) 09/09/2011 Type 2 diabetes mellitus, controlled Resolved Problems Problem Noted Date Diagnosed Date Resolved Date Type 2 diabetes mellitus, uncontrolled 09/09/2011 08/19/2020 Overview (05/24/2017): Type II or unspecified type diabetes mellitus without mention of complication, uncontrolled (HRC) Encounters Date Type Department Care Team Description 06/24/2024 Refill [facility] [address] [place] [address] Arturo Diaz MD Refill (sildenafil (REVATIO) 20 MG tablet [Pharmacy Med Name: SILDENAFIL CITRATE 20MG TABS]) 06/10/2024 Refill [facility] [address] [place] [address] Arturo Diaz MD Refill (amLODIPine (NORVASC) 10 MG tablet [Pharmacy Med Name: AMLODIPINE BESYLATE 10MG TAB]) 05/29/2024 Refill [facility] [address] [place] [address] Arturo Diaz MD Refill (sildenafil (REVATIO) 20 MG tablet [Pharmacy Med Name: SILDENAFIL CITRATE 20MG TABS]) from Last 3 Months Immunizations Name Administration Dates Next Due Flu Vac (3+ yrs) 08/09/2012 Influenza IIV3 (Trivalent) F lusafia Highdose, 65+ Yrs (26[address]) 07/02/2018,07/12/2017,07/14/2016, 015,06/27/2014 Influenza IIV4 (Quadrivalent ) Fluad, [...] Comments Blood Pressure 149/77 12/07/2023 11:23 AM LEAD IOS DEVELOPER Pulse 88 12/07/2023 11:12 AM LEAD IOS DEVELOPER Temperature 37 ??C (98.6 ??F) 09/07/2020 9:58 AM LEAD IOS DEVELOPER Respiratory Rate 20 09/07/2020 9:58 AM LEAD IOS DEVELOPER Oxygen Saturation 97% 09/07/2020 9:58 AM LEAD IOS DEVELOPER Inhaled Oxygen Concentration - - Weight 84.8 kg (187 lb) 12/07/2023 11:12 AM LEAD IOS DEVELOPER Height 162.6 cm (5' 4) 12/07/2023 11:12 AM LEAD IOS DEVELOPER Body Mass Index 32.1 12/07/2023 11:12 AM LEAD IOS DEVELOPER Plan of Treatment Health Maintenance Due Date Last Done Comments Diabetes: Foot Exam 1945 Zoster/Shingles (1 of 2) 01/16/1996 RSV [...] patient's age to complete this topic RSV Aged Out No longer eligi ble based on patient's age to complete this topic MCV4 Aged Out No longer eligi ble based on patient's age to complete this topic Procedures Procedure Name Priority Date/Time Associated Diagnosis Comments BASIC METABOLIC PANEL Routine 12/07/2023 11:53 AM LEAD IOS DEVELOPER Controlled type 2 diabetes mellitus without complication, without long-term current use of insulin (HRC) Secondary hypertension (HRC) HGB A1C Routine 12/07/2023 11:53 AM LEAD IOS DEVELOPER Controlled type 2 diabetes mellitus without complication, [...] FIT,OCCULT BLOOD, STOOL Routine 09/23/2019 9:40 AM LEAD IOS DEVELOPER Encounter for Medicare annual wellness exam HEPATITIS C ANTIBODY, WITH REFLEX Routine 01/30/2018 9:11 AM CDT Encounter for Medicare annual wellness exam from Last 3 Months or Most Recently Relevant to Health Maintenance Results * (ABNORMAL) Basic Metabolic Panel (12/07/2023 11:53 AM LEAD IOS DEVELOPER) Pathologist [facility] Sodium 140 136 - 145 mmol/L 12/07/2023 3:59 PM [facility] Potassium 4.2 3.5 - 5.1 mmol/L 12/07/2023 3:59 PM [facility] Chloride 108 98 - 109 mmol/L 12/07/2023 3:59 PM [facility] CO2 21 20 - 29 mmol/L 12/07/2023 3:59 PM [facility] Anion Gap 11 7 - 16 mmol/L 12/07/2023 3:59 PM [facility] Calcium 9.3 8.4 - 10.4 mg/dL 12/07/2023 3:59 PM [facility] BUN 21 7 - 26 mg/dL 12/07/2023 3:59 PM [facility] Creatinine 1.30(H) 0.73 - 1.18 mg/dL 12/07/2023 3:59 PM [facility] Glucose 156(H) 70 - 100 mg/dL 12/07/2023 3:59 PM [facility] Comment:The given reference range is for the fasting state. Non-fasting reference range for glucose is 70 - 180 mg/dL. GFR, Estimated 57(L) >60 mL/min/1.7 3m2 12/07/2023 3:59 PM [facility] Comment:>60 Hours Fasting 0.1 8 - 12 Hours 12/07/2023 3:59 PM [facility] Comment:Lab unable to obtain patient's fasting status at time of specimen collection. Blood Venipuncture / Unknown 12/07/2023 11:53 AM LEAD IOS DEVELOPER 12/07/2023 11:53 AM [facility] Arturo Diaz MD LAB_1 [facility] [address] [place] [address] * (ABNORMAL) Hgb A1C (12/07/2023 11:53 AM [facility]) Pathologist [facility] Hemoglobin A1C (Rapid) 7.9(H) <=5.6 % 12/07/2023 12:46 PM [facility] Estimated Average Glucose (Calc) 180 < 117 mg/dL 12/07/2023 12:46 PM LEAD IOS DEVELOPER [facility] Comment:Estimated average gl ucose (eAG) converts A1c into glucose units (mg/dL) and estimates average glucose over the past approximately 3 months. The eAG reference interval (<117 mg/dL) corresponds to an A1c of <5.7%. Blood Venipuncture / Unknown 12/07/2023 11:53 AM LEAD IOS DEVELOPER 12/07/2023 11:53 AM LEAD IOS DEVELOPER Narrative [facility] - 12/07/2023 12:46 PM LEAD IOS DEVELOPER For patients not previously diagnosed with diabetes: [...] Arturo Diaz MD LAB_1 Performing Organization Address [facility]/ZIP Co de Phone Number [facility] [address] [place] [address] * (ABNORMAL) Albumin/Creatinine Ratio,Random Urine (06/09/2023 10:25 AM CDT) Albumin/Creati nine Ratio, Urine, Random 30(H) <30 mg/g 06/09/2023 3:08 PM T [facility] Albumin, Urine, Random 64.4 mg/L 06/09/2023 3:08 PM CDT [facility] Creatinine, Urine, Random 216 >20 mg/dL mg/dL 06/09/2023 3:08 PM T [facility] Urine Non-blood Collection / Unknown 06/09/2023 10:25 AM CDT 06/09/2023 10:25 AM CDT Arturo Diaz MD LAB_1 Performing Organization Address [facility]/ZIP Co de Phone Number [facility] [address] [place] [address] [phone] * (ABNORMAL) Lipid Panel and Direct LDL(If Needed) (12/21/2022 9:28 AM CDT) Pathologist [facility] Cholesterol 162 0 - 199 mg/dL 12/21/2022 10:27 AM T [facility] Triglyceride 131 <=149 mg/dL 12/21/2022 10:27 AM [facility] HDL Cholesterol 30(L) >=40 mg/dL 3 10:27 AM [facility] LDL, Calculated 106 <130 mg/dL 3 10:27 AM [facility] Non HDL Chol, Calculated 132 <=159 mg/dL 12/21/2022 10:27 AM [facility] Cholesterol/HDL Ratio 5.4 12/21/2022 10:27 AM [facility] Hours Fasting 12 12/21/2022 10:27 AM [facility] Blood Venipuncture / Unknown 12/21/2022 9:28 AM CDT 12/21/2022 9:28 AM CDT Arturo Daiz MD LAB_1 [facility] [address] [place] [address] [phone] * FIT Colon Rectal Cancer Screening (09/23/2019 9:40 AM LEAD IOS DEVELOPER) [facility] FIT Specimen 1 Negative Negative 09/24/2019 1:[address] IOS [address]EL[address] [facility] Stool 09/23/2019 9:40 AM LEAD IOS DEVELOPER 09/23/2019 9:40 AM LEAD [employer]OS DEVELOPER Arturo Diaz MD LAB_1 [facility] [id number] [place] [address] * Hepatitis C Antibody, with Reflex (01/30/2018 9:11 AM CDT) Pathologist [facility] Hepatitis C Antibody Nonreactive Nonreactive PN SOFT 01/30/2018 9:11 AM CDT 01/30/2018 12:21 PM CDT Narrative [facility] - 01/30/2018 4:28 PM CDT Performed at [facility] [id number] [place] [address] CLIA number [id number] Arturo Diaz MD LAB_1 [facility] [address] [place] [address] from Last 3 Months or Most Recently Relevant to Health Maintenance Care Teams Certified Drug Counselor Relationship Specialty [place] [address] [place] [address] PCP - General 04/13/12
--- OUTSIDE RECORDS SUMMARY | 2024-07-05 12:16 | XMS_ITS | Encounter Summary ---
[facility] Address [address] [place] [address] Care Team Providers Care Respiratory Technician Name Role Phone Kate Friend MD Primary Care Provider [phone] Reason for Visit * Reason Comments Refill amLODIPine (NORVASC) 10 MG tablet [Pharmacy Med Name: AMLODIPINE BESYLATE 10MG TAB] Encounter Details Date Type Department Care Team (Late st Contact Info) Description 06/10/2024 Refill [facility] [address] [place], [place] [phone] [place] [address] [place], [place] [phone] Refill (amLODIPine (NORVASC) 10 MG tablet [Pharmacy [...] one tablet by mouth every day * Gianni Reedm - 06/10/2024 11:00 AM CDT amLODIPine [...] (with KATE FRIEND) Next scheduled visit: None [employer] [facility] Embedded Refills, Reference: [id number], 06/10/2024 11:00:57 AM CDT, [facility] [[id number]] ([id number]) documented in this encounter Plan of Treatment Not on file documented as of this encounter Visit Diagnoses Not on filedocumented in this encounter Care Teams Respiratory Technician Relationship Specialty [place] [address] [address] [place] [address] PCP - General 04/13/12 documented as of this encounter
--- NOTE | 2024-07-05 13:00 | CRLHL7_ITS ---
For Patients: As a result of the Century Cures Act, medical imaging exams and procedure reports are released immediately into your electronic medical record. You may view this report before your referring provider. If you have questions, please contact your health care provider. Indication: Memory change. Delusions. Technique: Multiplanar, multisequence MRI of the brain was performed without intravenous contrast. Comparison: None relevant available. Findings: The corpus callosum, pituitary gland clivus appear intact. Moderate degenerative change visualized upper cervical spine. No true restricted diffusion. Scattered foci of T2 shine through artifact on diffusion-weighted imaging. The ventricles are proportionate to the cerebral sulci. The 4th ventricle appears midline. The basal cisterns appear patent. No abnormal extra-axial fluid collection identified. Moderate parenchymal volume loss. Extensive T2 FLAIR hyperintense foci within the subcortical and periventricular white matter, favored to represent chronic ischemic microvascular disease. Small chronic lacunar infarct right cerebellum. 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 Scattered foci of microhemorrhages within the cerebellum and periphery of the brain parenchyma. There is no intracranial mass, abnormal mass-effect or midline shift identified. Thinning of the right ocular lens. Impression: 1. No acute/subacute infarct. 2. Extensive chronic ischemic microvascular disease. 3. 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 4. Scattered peripheral based chronic foci of microhemorrhage. These could represent sequela of chronic hypertensive or amyloid microangiopathy. Dictated by Lio Silva MD @ 07/05/2024 2:23:23 PM (Electronically Signed)
== END 2024-07-05 12:14 | disposition home or self-care (01) ==
LOC: MRI 12:14
PROVIDERS: PCP Family Medicine; Visit Provider Family Medicine
DX: R41.3 Other amnesia (principal); I67.82 Cerebral ischemia; I63.9 Cerebral infarction, unspecified
CPT/HCPCS: 70551

== ENCOUNTER 2024-11-28 09:25 | Outpatient (CLI) | payer MEDICARE, SELFPAY | END 2024-11-28 09:26 | disposition home or self-care (01) | LOC: NFLDREF 11-29 09:53 | PROVIDERS: PCP Family Medicine; Referring Provider Family Medicine; Visit Provider Family Medicine | DX: E78.5 Hyperlipidemia, unspecified (principal); I10 Essential (primary) hypertension; E11.29 Type 2 diabetes mellitus with other diabetic kidney complication; R80.9 Proteinuria, unspecified; E53.8 Deficiency of other specified B group vitamins | CPT/HCPCS: 80053; 80061; 82043; 82570; 82607 ==

== ENCOUNTER 2025-01-01 09:12 | Outpatient (CLI) | payer MEDICARE, SELFPAY ==
[2025-01-01 10:19] LABS: Basophils Absolute Auto 0.03 K/uL (0.00-0.30); Basophils Percent Auto 0.4 % (0.0-3.0); Eosinophils Percent Auto 7.4 % (0.0-7.0); Hematocrit 41.9 % (37.0-53.0); Hemoglobin* 14.3 gm/dL (13.5-17.5); Immature Granulocytes Abs Auto 0.03 K/uL (0.00-0.30); Immature Granulocytes Pct Auto 0.4 %; Lymphocytes Absolute Auto 1.71 K/uL (0.90-2.90); Lymphocytes Percent Auto 21.7 % (20-44); Mean Corpuscular HGB Conc 34 gm/dL (32-36); Mean Corpuscular Hemoglobin 32 pg (26-34); Mean Corpuscular Volume 94 fL (80-100); Monocytes Percent Auto 9.3 % (0.0-11.0); Neutrophils Percent Auto 60.8 % (42.0-72.0); Platelet Count* 213 K/uL (140-440); RDW Coefficient of Variation % 12.6 % (11.5-15.5); Red Blood Count 4.45 m/uL (4.30-5.90); White Blood Count* 7.88 K/uL (4.50-11.00)
[2025-01-01 10:26] LABS: Slide Review Reflex No
[2025-01-01 10:29] LABS: Cholesterol* 144 mg/dL (90-199); HDL Cholesterol* 35 mg/dL (>=40); LDL Cholesterol Calculated 85 mg/dL (<100); Triglycerides* 120 mg/dL (40-149)
[2025-01-01 10:40] LABS: C Reactive Protein* < 0.5 mg/dL (0.5-1.0)
[2025-01-01 10:43] LABS: INR 2.41 (0.91-1.10); Prothrombin Time 27.4 Seconds
[2025-01-01 10:44] LABS: Partial Thromboplastin Time* 39 Seconds (23-33)
== END 2025-01-01 09:13 | disposition home or self-care (01) ==
LOC: NPINS 09:19
PROVIDERS: PCP Family Medicine; Visit Provider Psychiatry & Neurology Neurology
DX: F44.89 Other dissociative and conversion disorders (principal); I63.50 Cerebral infarction due to unspecified occlusion or stenosis of unspecified cerebral artery
CPT/HCPCS: 80061; 85025; 85610; 85730; 86140

== ENCOUNTER 2025-01-10 07:53 | Outpatient (CLI) | payer MEDICARE, SELFPAY ==
--- NOTE | 2025-01-10 09:15 | CRLHL7_ITS ---
For Patients: As a result of the Century Cures Act, medical imaging exams and procedure reports are released immediately into your electronic medical record. You may view this report before your referring provider. If you have questions, please contact your health care provider. INDICATION: Confusion. COMPARISON: 07/05/2024. TECHNIQUE: [id number] MRA. 3D reconstructed images. FINDINGS: Bilateral carotid siphons and [place] are patent. Visualized bilateral BILL and MCA circulations are patent with no focal high-grade stenosis or aneurysm. There is a small 2 mm focal prominence at the trifurcation of the right MCA (series 2, image 109) which likely represents a prominent infundibulum. Bilateral PC circulations patent with no stenosis or aneurysm. Patent left dominant vertebrobasilar system. IMPRESSION: 1. Normal MRA head. Dictated by René Duarte MD @ 01/10/2025 10:35:49 PM (Electronically Signed)
--- NOTE | 2025-01-10 10:15 | CRLHL7_ITS ---
For Patients: As a result of the Century Cures Act, medical imaging exams and procedure reports are released immediately into your electronic medical record. You may view this report before your referring provider. If you have questions, please contact your health care provider. INDICATION: Confusion. COMPARISON: None. TECHNIQUE: [id number] and gadolinium bolus MRA of the neck. 3D reconstructed images. Doing 20 cc IV. FINDINGS: No focal flow-void on [id number] MRA to suggest high-grade stenosis. Absent flow signal within the right vertebral artery which may be secondary to slow flow or reversal flow. Gadolinium bolus MRA demonstrates patent bilateral carotid artery circulations from the origin to the skullbase. No high-grade stenosis. Dominant patent left vertebral artery from the origin through the vertebrobasilar junction. No high-grade stenosis or dissection. Retrograde filling of a diminutive, hypoplastic right vertebral artery. IMPRESSION: 1. Normal MRA neck. Dictated by René Duarte MD @ 01/10/2025 10:38:18 PM (Electronically Signed)
== END 2025-01-10 07:54 | disposition home or self-care (01) ==
PROVIDERS: PCP Family Medicine; Visit Provider Psychiatry & Neurology Neurology
DX: F44.89 Other dissociative and conversion disorders (principal); I63.50 Cerebral infarction due to unspecified occlusion or stenosis of unspecified cerebral artery
CPT/HCPCS: 70544; 70549; 93306; 96374; A9575

== ENCOUNTER 2025-05-26 13:25 | Outpatient (CLI) | payer MEDICARE, SELFPAY ==
--- NOTE | 2025-05-26 13:45 | CRLHL7_ITS ---
For Patients: As a result of the Century Cures Act, medical imaging exams and procedure reports are released immediately into your electronic medical record. You may view this report before your referring provider. If you have questions, please contact your health care provider. INDICATION: Dementia TECHNIQUE: Noncontrast Sagittal T1,Axial FSE T2, Flair, SWI, DWI images submitted. Compared to prior study from July 05, 2024 FINDINGS: Moderate cerebral atrophy. Stable chronic infarct of the right parietal lobe with hemosiderin staining compatible with presence of chronic blood products. The remainder of the ventricles, sulci and gyri are of normal size, shape and contour for age and degree of atrophy. Midline structures are centrally located. No convincing evidence of suspicious intra- or extra-axial fluid collections. Stable moderate to severe patchy regions of increased T2 signal within the periventricular and subcortical white matter of both cerebral hemispheres. No regions of restricted diffusion. Stable tiny foci of susceptibility within the cerebellar hemispheres as well as the periphery of both cerebral hemispheres. IMPRESSION: 1. No radiographic evidence of acute intracranial abnormalities. 2. Moderate cerebral atrophy. 3. Stable moderate to severe supratentorial white matter changes that are non-specific, but statistically most likely related to chronic small vessel ischemic disease. 4. Stable chronic right parietal lobe hemorrhagic infarct. 5. Stable multi focal regions of susceptibility in the cerebellar and cerebral hemispheres that may represent residua from chronic microhemorrhages or amyloid angiopathy. Dictated by Karan Garcia MD @ 05/26/2025 3:29:31 PM (Electronically Signed)
== END 2025-05-26 13:26 | disposition home or self-care (01) ==
LOC: MRI 13:26
PROVIDERS: PCP Family Medicine; Visit Provider Psychiatry & Neurology Neurology
DX: G31.9 Degenerative disease of nervous system, unspecified (principal); F03.B0 Unspecified dementia, moderate, without behavioral disturbance, psychotic disturbance, mood disturbance, and anxiety; I61.9 Nontraumatic intracerebral hemorrhage, unspecified; I62.9 Nontraumatic intracranial hemorrhage, unspecified
CPT/HCPCS: 70551

== ENCOUNTER 2025-06-09 09:08 | Outpatient (CLI) | payer MEDICARE, SELFPAY | END 2025-06-09 09:09 | disposition home or self-care (01) | LOC: NFLDREF 06-12 16:04 | PROVIDERS: PCP Family Medicine; Referring Provider Family Medicine; Visit Provider Family Medicine | DX: R79.89 Other specified abnormal findings of blood chemistry (principal); E78.2 Mixed hyperlipidemia; I10 Essential (primary) hypertension | CPT/HCPCS: 80053; 80061; 82043; 82570; 82607 ==

== ENCOUNTER 2025-06-17 12:15 | Outpatient (CLI) | payer MEDICARE, SELFPAY | END 2025-06-17 12:16 | disposition home or self-care (01) | LOC: NFLDREF 06-23 04:42 | PROVIDERS: PCP Family Medicine; Referring Provider Family Medicine; Visit Provider Family Medicine | DX: E11.29 Type 2 diabetes mellitus with other diabetic kidney complication (principal); R80.9 Proteinuria, unspecified | CPT/HCPCS: 82043; 82570 ==

== ENCOUNTER 2025-07-16 13:00 | Outpatient (RCR) | payer MEDICARE, SELFPAY | END 2025-07-16 13:50 | disposition home or self-care (01) | PROVIDERS: PCP Family Medicine; Visit Provider Psychiatry & Neurology Neurology | DX: F03.90 Unspecified dementia, unspecified severity, without behavioral disturbance, psychotic disturbance, mood disturbance, and anxiety (principal); R26.89 Other abnormalities of gait and mobility; Z51.89 Encounter for other specified aftercare | CPT/HCPCS: 97110; 97112; 97161 ==